=== PATIENT | male | born 1960 | race Caucasian/White ===

== ENCOUNTER 2020-05-26 07:02 | Day surgery (SDC) | payer OTHER, SELFPAY ==
[2020-05-20 14:13] VITALS: BMI 26.0
--- NOTE | 2020-05-25 09:32 | HO.ANESPROP2 ---
Documented by User: Mora Singh 05/25/20 12:12 HPI - Anesthesia Eval Consult details Narrative: 59yo M for Colonoscopy s/p AAA repair 2009, stable per recent pcp note. No imaging available 05/25/20. [facility] Past Medical History Medical History History of CVA (cerebrovascular accident) without residual deficits HTN (hypertension) Surgical History Surgical History Hx of ascending aorta repair Hx of colonoscopy Social History Social History Smoking Status: Never smoker Use of substances other than those prescribed or required for medical reasons: No Advance Directives: No Advance Directives Information Provided: No Advance Directives on File: No Meds Allergies Allergy/AdvReac Type Severity Reaction Status Date / Time No Known Allergies Allergy Mild NOT Verified 05/26/20 07:18 APPLICABLE Home Medications Medication Instructions Recorded Confirmed Type aspirin [Aspir-81] 81 mg PO DAILY 05/20/20 05/20/20 History ibuprofen 400 mg PO Q6H PRN 05/20/20 05/20/20 History lisinopril 20 mg PO DAILY 05/20/20 05/20/20 History metoprolol succinate 50 mg PO DAILY 05/20/20 05/26/20 History multivitamin 1 tab PO DAILY 05/20/20 05/20/20 History Exam Exam Date and Time: May 25, 2020 0932 Height,Weight and Vital Signs: Height 6 ft Weight 87.09 kg Assessment and Plan Assessment Anesthesia Assessment: Chart Reviewed Documented by User: Amber Zaldivar 05/26/20 07:28 [facility] Past Medical History Medical History History of CVA (cerebrovascular accident) without residual deficits HTN (hypertension) Surgical History Surgical History Hx of ascending aorta repair Hx of colonoscopy Social History Social History Smoking Status: Never smoker Use of substances other than those prescribed or required for medical reasons: No Advance Directives: No Advance Directives Information Provided: No Advance Directives on File: No Meds Allergies Allergy/AdvReac Type Severity Reaction Status Date / Time No Known Allergies Allergy Mild NOT Verified 05/26/20 07:18 APPLICABLE Home Medications Medication Instructions Recorded Confirmed Type aspirin [Aspir-81] 81 mg PO DAILY 05/20/20 05/20/20 History ibuprofen 400 mg PO Q6H PRN 05/20/20 05/20/20 History lisinopril 20 mg PO DAILY 05/20/20 05/20/20 History metoprolol succinate 50 mg PO DAILY 05/20/20 05/26/20 History multivitamin 1 tab PO DAILY 05/20/20 05/20/20 History Exam Airway Mallampati Class: II TM Dist: >3cm Neck ROM: Full
[2020-05-26 07:22] VITALS: BP 126/78; PULSE 75; RESP 16; TEMP 36.8; O2SAT 97
[2020-05-26] MEDS: Lactated Ringers 1,000 ML 100 ML IVCONT (07:29)
--- NOTE | 2020-05-26 08:20 | MHC.SHP ---
Pre-Procedural Eval Section B Chief Complaint: Screening Details of Present Illness: screening Relevant Family History (Specify if Yes): No Relevant Social History: None Present Medications: see Short Stay Collaborative assessment Medical History: No relevant PMH History of Previous Operations: No relevant previous surgery Allergies: Allergies Allergy/AdvReac Type Severity Reaction Status Date / Time No Known Allergies Allergy Mild NOT Verified 05/26/20 07:18 APPLICABLE Review of Systems Sugical H&P ROS: Negative: Constitution, Cardiovascular, Respiratory, Neurological, Psychiatric, Hem-Onc, Allergic/Immunologic, Gastrointestinal, Genitourinary, Musculoskeletal, Integumentary, Endocrine and Eyes/Ears/Nose/Throat Exam Surgical H&P Exam: Normal: HEENT, Normal: Heart, Normal: Lungs, Normal: Extremities, Normal: Abdomen, Normal: Skin and Normal: Neurological Plan Diagnosis/Plan: Unchanged I have reviewed the history and physical and performed a pertinent physical examination on my patient. No changes have occurred unless specified.
--- NOTE | 2020-05-26 08:53 | PM.OP ---
Brief Operative Note Date of Service: 05/26/20 Pre-op diagnosis: screening Post-op diagnosis: same (normal) Procedure: colonoscopy Surgeon: Memo Gutierres Anesthesia: MAC Estimated blood loss (mL): 0 Pathology: none sent Condition: stable Disposition: PACU
[2020-05-26 08:55] VITALS: BP 100/60; PULSE 62; RESP 16; TEMP 36.9; O2SAT 99
[2020-05-26 09:10] VITALS: BP 137/83; PULSE 65; RESP 17; TEMP 36.2; O2SAT 99
--- NOTE | 2020-05-26 09:18 | OP_ITS ---
SURGEON: Memo Gutierres MD INDICATIONS: Colon cancer screening. PREOPERATIVE DIAGNOSIS: POSTOPERATIVE DIAGNOSIS: PROCEDURE PERFORMED: Colonoscopy to the terminal ileum. ESTIMATED BLOOD LOSS: COMPLICATIONS: ANESTHESIA: ASSISTANTS: SPECIMENS: MEDICATIONS: Monitored anesthesia care. DESCRIPTION OF PROCEDURE: History and physical performed. The risks and benefits of the procedure were explained to the patient. Informed consent was obtained. The patient was placed in the left lateral decubitus position. A digital rectal exam was performed and was found to be normal. The Olympus pediatric video colonoscope was introduced into the rectum and advanced to the cecum without difficulty. The cecum was identified by transillumination, palpation, and identification of ileocecal valve. Examination was performed and the scope was removed. He tolerated the procedure well and was taken to recovery area in stable condition. FINDINGS: The terminal ileum was examined and appeared normal. The visualized colonic mucosa was normal. The quality of prep was good. No polyps were identified. Retroflexed examination was normal. IMPRESSION: Normal colonoscopy. RECOMMENDATIONS: 1. Follow up as needed. 2. Repeat colonoscopy is recommended in 10 years for average risk individuals. MD UMESH Silveira/CROW / [id number]
--- NOTE | 2020-05-26 09:18 | HO.POSTANES ---
Post Anesthesia Evaluation Post Anesthesia Evaluation Vital Signs: Vital Signs Temp Pulse Resp BP Pulse Ox 05/26/20 09:10 97.1 F 65 17 137/83 99 05/26/20 08:55 98.4 F 62 16 100/60 99 05/26/20 07:22 98.3 F 75 16 126/78 97 Anesthesia: Monitored Mental Status: Awake Pain Control: Satisfactory Nausea/Vomiting: None Hydration: Adequate Anesthesia-Related Issues: No Anes. Related Issues
== END 2020-05-26 09:35 | disposition home or self-care (01) ==
PROVIDERS: PCP Internal Medicine; Visit Provider Internal Medicine Gastroenterology
PROC: 0DJD8ZZ Inspection of Lower Intestinal Tract, Via Natural or Artificial Opening Endoscopic (ICD-10-PCS; CPT 45378; principal; 2020-05-26 08:10)
DX: Z12.11 Encounter for screening for malignant neoplasm of colon (principal); I10 Essential (primary) hypertension; Z86.73 Personal history of transient ischemic attack (TIA), and cerebral infarction without residual deficits; Z79.82 Long term (current) use of aspirin; Z79.899 Other long term (current) drug therapy
CPT/HCPCS: 45378

== ENCOUNTER 2025-01-03 08:37 | Outpatient (REF) | payer MEDICARE, SELFPAY ==
--- OUTSIDE RECORDS SUMMARY | 2025-01-03 08:51 | XMS_ITS | Encounter Summary ---
Author Organization [facility] Address [address] [place] [address] Phone Care Team Providers Care Parts Technician Name Role Phone Luther Camara MD Primary Care Provider [phone] Marcellus Mojica MD Unavailable [phone] Wild Rutledge MD Unavailable [email or web address] Luther Camara MD Unavailable [phone] Roddy Chris MD Unavailable [phone] Luther Camara MD Unavailable [phone] Encounter Details Date Type Department Care Team (Late st Contact Info) Description 01/13/2020 Transcribe Orders [facility] [address] [place] [id number] Luther Camara MD [address] [place] [address] [email or web address] Social History Tobacco Use Types Packs/Day Years Used Date Smoking Tobacco: Never Smokeless Tobacco: Never Alcohol Use Standard Drinks/Week Comments Yes 7 (1 standard drink = 0.6 oz pur e alcohol) Sex and Gender Information Value Date Recorded Sex Assigned at Male 12/27/2023 1:26 PM EDT Legal Sex Male 7:36 PM EST Gender Identity Male 12/27/2023 1:26 PM EDT Sexual Orientation Straight 12/27/2023 1: 26 PM EDT documented as of this encounter Plan of Treatment Upcoming Encounters Date Type Department Care Team (Late st Contact Info) Description 10/17/2025 9:00 AM EDT Office Visit [facility] Internal Medicine [address] [place] [address] Luther Camara MD [address] [place] [address] documented as of this encounter Visit Diagnoses Not on filedocumented in this encounter Additional Health Concerns Assessment Noted Time PHQ-9 Depression Total Score: 0 01/21/20 10:54 AM EDT PHQ-2 Depression Total Score: 0 12/31/19 2:53 PM EDT documented as of this encounter Care Teams Parts Technician Relationship Specialty Start Date End Date Luther Camara MD [address] [place] [address] PCP - General 09/18/14 Marcellus Mojica MD [address] [place] [address] Cardiology 01/20/15 Wild Rutledge MD [email or web address] Cardiology 08/16/16 Luther Camara MD [address] [place] [address] Historical LMR Provider 03/04/17 Roddy Chris MD [address] [place] [address] [place] [address] Middleware Architect Internal Medicine 07/21/20 Luther Camara MD [address] [place] [address] [email or web address] Insurance Assigned Provider 02/18/24 documented as of this encounter Additional Source Comments The information contained in this document represents components of the legal health record. It is not the complete legal health record.[facility]
--- OUTSIDE RECORDS SUMMARY | 2025-01-03 08:51 | XMS_ITS | Patient Health Record ---
Author Organization [facility] Address [address] [place] [id number] Care Team Providers Care Pin Drafter Operator Name Role Phone Luther Camara MD Primary Care Provider Memo Baer Jr Unavailable Reason For Referral No Information Medications Medication SIG (Take, Route, Frequency, Duration) Notes Start Date End Date Status MiraLax (colon prep) 8.3 ounce ((238) grams mixed with Gatorade or Crystal Light orally begin at 5:00 p.m. the day before the procedure for 1 day 03/25/2020 Active Metoprolol Succinate 50 MG 1 capsule Ora lly Once a day for 30 day(s) Active Aspirin 81 81 MG 1 tablet Orally Once a day for 30 day(s) Active Lisinopril 20 MG 1 tablet Orally Once a day for 30 day(s) Active Ibuprofen PRN Active Multivitamin Adults - as directed Orally Active Immunizations Vaccine Route Administration Date Status Comme nts Influenza Unknown 01/22/2020 Administered Social History Tobacco Use: Social History Observation Description Date Details (start date - stop date) Never Smoker NA - NA Tobacco Use/Smoking Question Answer Notes Patient is a nonsmoker Alcohol Screen Question Answer Notes Did you have a drink contain ing alcohol in the past year? Yes How often did you have a dri nk containing alcohol in the past year? 2 to 3 times a week (3 points) How many drinks did you have on a typical day when you were drinking in the past year? 1 or 2 drinks (0 point) How often did you have 6 or more drinks on one occasion in the past year? Never (0 point) Points 3 Interpretation Negative Problems Problem Type SNOMED Code ICD Code Onset Dates Problem Status W/U Status Risk Notes Problem 179849566 Colon cancer screening (Z12.11) Active confirmed Problem 885435868 Encounter for other preprocedural examination (Z01.818) Active confirmed Problem [id number] prison (current) use of aspirin (Z79.82) Active confirmed Plan Of Treatment Future Test Test Name Order Date COLONOSCOPY 03/25/2020 Insurance Providers Payer Name Payer Address Payer Phone Subscriber Number Group Number Insured Name Patient Relationship to Insured Coverage Start Date Coverage End Date [facility] [address] [place] [phone] [id number] D[employer] Self - patient is the insured Medical (General) History Medical History History ICD Code hypertension Aortic aneurysm CVA/PFO Surgical History Surgery Date(Month/Year) Aortic aneurysm repair hernia repair x2 PFO repair at time of aneurysm repair
== END 2025-01-03 08:38 | disposition home or self-care (01) ==
LOC: CF 08:37
DX: Z13.89 Encounter for screening for other disorder (principal)

== ENCOUNTER 2025-01-15 09:43 | Outpatient (AMB) | payer MEDICARE, SELFPAY ==
--- OUTSIDE RECORDS SUMMARY | 2025-01-15 10:43 | XMS_ITS | Encounter Summary ---
Author Organization [facility] Address [address] [facility] [address] [place] [address] Phone Care Team Providers Care Product Coordinator Name Role Phone Luther Camara MD Primary Care Provider [phone] Marcellus Mojica MD Unavailable [phone] Wild Rutledge MD Unavailable [email or web address] Luther Camara MD Unavailable Roddy Chris MD Unavailable [phone] Luther Camara MD Unavailable [phone] Encounter Details Date Type Department Care Team (Late st Contact Info) Description 02/03/2022 Procedure Pass [facility] Echocardiography [address] [place] [address] Social History Tobacco Use Types Packs/Day Years Used Date Smoking Tobacco: Never Smokeless Tobacco: Never Alcohol Use Standard Drinks/Week Comments Yes 2 (1 standard drink = 0.6 oz pur e alcohol) 1-2 drinks, 2-3 x week Child or Family Care Answer Date Record ed Do you have problems with on e of the following making it difficult for you to work, study, or receive health care? No 11/26/2020 Education Answer Date Recorded Are you interested in help w ith more adult education (for example, completing high school, GED, job training, learning the [place] language, technical skills, or developing parenting skills)? No 11/26/2020 Are you concerned about learning? Not on file 11/26/2020 Not on file 11/26/2020 Not on file 11/26/2020 Food Answer Date Recorded Within the past 6 months we worried whether our food would run out before we got money to buy more. Never True 11/26/2020 Within the past 6 months the food we bought just didn't last and we didn't have enough money to get more. Never True Paying for Meds Answer Date Recorded Do you have trouble paying for medicines? No 11/26/2020 Paying Utility Bills Answer Date Record ed Do you have trouble paying your heating or elect ricity bill? No 11/26/2020 Transportation Answer Date Recorded Has the lack of transportati on kept you from medical appointments or from getting medications? No 11/26/2020 Sex and Gender Information Value Date Recorded Sex Assigned at Male 12/27/2023 1:26 PM EDT Legal Sex Male 7:36 PM EST Gender Identity Male 12/27/2023 1:26 PM EDT Sexual Orientation Straight 12/27/2023 1: 26 PM EDT documented as of this encounter Plan of Treatment Upcoming Encounters Date Type Department Care Team (Late st Contact Info) Description 10/17/2025 9:00 AM EDT Office Visit [facility] Internal Medicine [address] [place] [address] Luther Camara MD [address] [place] [address] [email or web address] documented as of this encounter Visit Diagnoses Not on filedocumented in this encounter Additional Health Concerns Assessment Noted Time PHQ-9 Depression Total Score: 0 01/21/20 15 10:54 AM EDT PHQ-2 Depression Total Score: 0 06/14/19 23 3:38 PM EST documented as of this encounter Care Teams Product Coordinator Relationship Specialty Start Date End Date Luther Camara MD [address] [place] [address] PCP - General 09/18/14 Marcellus Mojica MD [address] [place] [address] Cardiology 01/20/15 Wild Rutledge MD [email or web address] Cardiology 08/16/16 Luther Camara MD [address] [place] [address] [email or web address] Historical LMR Provider 03/04/17 Roddy Chris MD [address] [place] [address] [place] [address] Acoustical Engineer Internal Medicine 07/21/20 Luther Camara MD [address] [place] [address] [email or web address] Insurance Assigned Provider 02/18/24 documented as of this encounter Additional Source Comments The information contained in this document represents components of the legal health record. It is not the complete legal health record.[facility]
--- OUTSIDE RECORDS SUMMARY | 2025-01-15 10:43 | XMS_ITS | Encounter Summary ---
Author Organization [facility] Address [address] [facility] [address] [place] [address] Phone Care Team Providers Care Information Systems Security Officer Name Role Phone Luther Camara MD Primary Care Provider [phone] Marcellus Mojica MD Unavailable [phone] Wild Rutledge MD Unavailable [email or web address] Luther Camara MD Unavailable [phone] PeriRoddy Ramos MD Unavailable [phone] Luther Camara MD Unavailable [phone] Encounter Details Date Type Department Care Team (Late st Contact Info) Description 08/08/[address] [facility] Rad[facility] [address] [place] [address] Social History Tobacco Use Types Packs/Day Years Used Date Smoking Tobacco: Never Alcohol Use Standard Drinks/Week Comments Not Asked 0 (1 standard drink = 0.6 oz pur [...] Description 10/17/2025 9:00 AM EDT Office Visit [facility] Internal Medicine [address] [place] [address] Luther Camara MD [address] [place], [place] [phone] documented as of this encounter Visit Diagnoses Not on filedocumented in this encounter Additional Health Concerns Assessment Noted Time PHQ-9 Depression Total Score: 0 01/21/20 10:54 AM EDT PHQ-2 Depression Total Score: 0 01/21/20 10:54 AM EDT documented as of this encounter Care Teams Information Systems Security Officer Relationship Specialty Start Date End Date Luther Camara MD [address] [place] [address] PCP - General 09/18/14 Marcellus Mojica MD [address] [place] [address] Cardiology 01/20/15 Wild Rutledge MD [email or web address] Cardiology 08/16/16 Luther Camara MD [address] [place] [address] Historical LMR Provider 03/04/17 Roddy Chris MD [address] [place] [address] [place] [address] Fire Hydrant Mechanic Internal Medicine 07/21/20 Luther Camara MD [address] [place] [address] Insurance Assigned Provider 02/18/24 documented as of this encounter Additional Source Comments The information contained in this document represents components of the legal health record. It is not the complete legal health record.[facility]
--- OUTSIDE RECORDS SUMMARY | 2025-01-15 10:43 | XMS_ITS | Encounter Summary ---
Author Organization [facility] Address [address] [facility] [address] [place] [address] Phone Care Team Providers Care Lawn And Garden Technician Name Role Phone Luther Camara MD Primary Care Provider [phone] Marcellus Mojica MD Unavailable [phone] Wild Rutledge MD Unavailable [email or web address] Luther Camara MD Unavailable [phone] Roddy Chris MD Unavailable [phone] Luther Camara MD Unavailable [phone] Encounter Details Date Type Department Care Team (Late st Contact Info) Description 12/27/[address] [facility] Radiology [address] [place] [address] Social History Tobacco Use Types Packs/Day Years [...] work, study, or receive health care? No 06/15/2023 Education Answer Date Recorded Are you interested in help w ith more adult education (for example, completing high school, GED, job training, learning the [place] language, technical skills, or developing parenting skills)? No 06/15/2023 Are you concerned about learning? Not on file 06/15/2023 No 06/15/2023 Yes 06/15/2023 Food Answer Date Recorded Within the past 6 months we worried whether our food would run out before we got money to buy more. Never True 06/15/2023 Within the past 6 months the food we bought just didn't last and we didn't have enough money to get more. Never True Residential Stability Answer Date Recor ded What is your housing situation today? I have dimitri sinclair 06/15/2023 How many times have you move d in the past 12 months? Zero (I did not move) 06/15/2023 Paying for Meds Answer Date Recorded Do you have trouble paying for medicines? No 06/15/2023 Paying Utility Bills Answer Date Record ed Do you have trouble paying your heating or elect ricity bill? No 06/15/2023 Transportation Answer Date Recorded Has the lack of transportati on kept you from medical appointments or from getting medications? No 06/15/2023 Unemployment Answer Date Recorded Are you currently unemployed or working on a part-time or temporary basis, and looking for work? No 06/14/2022 Digital Access Answer Date Recorded No 06/15/2023 Yes 06/15/2023 Do you have reliable internet access at home? Ye s 06/15/2023 Do you have a device (e.g., phone, tablet, computer) with a working camera? Yes 06/15/2023 Intimate Partner Violence Answer Date R ecorded Denied Basic Needs Not on file 06/15/2023 In the past 12 months have y ou been in a relationship with a person who hurts, threatens, or tries to control you? No 06/15/2023 Worried food would run out Not on file 06/15 In the past 12 months have y ou been in a relationship with a person who hurts, threatens, or tries to control you? No 06/15/2023 Sex and Gender Information Value Date Recorded Sex Assigned at Male 12/27/2023 1:26 PM EDT Legal Sex Male 7:36 PM EST Gender Identity Male 12/27/2023 1:26 PM EDT Sexual Orientation Straight 12/27/2023 1: 26 PM EDT documented as of this encounter Plan of Treatment Upcoming Encounters Date Type Department Care Team (Late st Contact Info) Description 10/17/2025 9:00 AM EDT Office Visit [facility] Internal Medicine [address] [place], [place] [id number] Luther Camara MD [address] [place] [address] documented as of this encounter Visit Diagnoses Not on filedocumented in this encounter Additional Health Concerns Assessment Noted Time PHQ-9 Depression Total Score: 0 01/21/20 15 10:54 AM EDT PHQ-2 Depression Total Score: 0 06/15/19 24 4:11 PM EST documented as of this encounter Care Teams Lawn And Garden Technician Relationship Specialty Start Date End Date Luther Camara MD [address] [place] [address] PCP - General 09/18/14 Marcellus Mojica MD [address] [place] [address] Cardiology 01/20/15 Wild Rutledge MD [email or web address] Cardiology 08/16/16 Luther Camara MD [address] [place] [address] Historical LMR Provider 03/04/17 Roddy Chris MD [address] [place] [address] [place] [address] Record Tester Internal Medicine 07/21/20 Luther Camara MD [address] [place] [address] [email or web address] Insurance Assigned Provider 02/18/24 documented as of this encounter Additional Source Comments The information contained in this document represents components of the legal health record. It is not the complete legal health record.[facility]
--- OUTSIDE RECORDS SUMMARY | 2025-01-15 10:43 | XMS_ITS | Encounter Summary ---
Author Organization [facility] Address [address] [facility] [address] [place] [address] Phone Care Team Providers Care Partner Management Consultant Name Role Phone Luther Camara MD Primary Care Provider [phone] Marcellus Mojica MD Unavailable [phone] Wild Rutledge MD Unavailable [email or web address] Luther Camara MD Unavailable [phone] Roddy Chris MD Unavailable [phone] Luther Camara MD Unavailable [phone] Encounter Details Date Type Department Care Team (Late st Contact Info) Description 07/22/2024 Procedure Pass [facility] Radiology [address] [place] [address] Social History Tobacco Use Types Packs/Day Years [...] high school, GED, job training, learning the Stateless language, technical skills, or developing parenting skills)? [...] Description 10/17/2025 9:00 AM EDT Office Visit [facility] Internal Medicine [address] [place], [place] [phone] Luther Camara MD [address] [place] [address] documented as of this encounter Visit Diagnoses Not on filedocumented in this encounter Additional Health Concerns Assessment Noted Time PHQ-9 Depression Total Score: 0 01/21/20 15 10:54 AM EDT PHQ-2 Depression Total Score: 0 06/15/19 24 4:11 PM EST documented as of this encounter Care Teams Partner Management Consultant Relationship Specialty Start Date End Date Luther Camara MD [address] [place] [address] PCP - General 09/18/14 Marcellus Mojica MD [address] [place] [address] Cardiology 01/20/15 Wild Rutledge MD [email or web address] Cardiology 08/16/16 Luther Camara MD [address] [place] [address] Historical LMR Provider 03/04/17 Roddy Chris MD [address] [place] [address] [place] [address] Senior Field Engineer Internal Medicine 07/21/20 Luther Camara MD [address] [place] [address] [email or web address] Insurance Assigned Provider 02/18/24 documented as of this encounter Additional Source Comments The information contained in this document represents components of the legal health record. It is not the complete legal health record.[facility]
--- OUTSIDE RECORDS SUMMARY | 2025-01-15 10:43 | XMS_ITS | Encounter Summary ---
Author Organization [facility] Address [address] [place] [address] Phone Care Team Providers Care Bulk Plant Agent Name Role Phone Luther Camara MD Primary Care Provider [phone] Marcellus Mojica MD Unavailable [phone] Wild Rutledge MD Unavailable [email or web address] Luther Camara MD Unavailable [phone] PeriRoddy Ramos MD Unavailable [phone] Luther Camara MD Unavailable Reason for Referral * MRI/CAT Scan - Closed Specialty Diagnoses / Procedures Referred By Paul torres Referred To Contact Radiology Diagnoses Status post ascending aortic aneurysm repair Procedures CT Angio 3D Reconstruction Chest/Abdomen/Pelvis Josh Rg PA-C [address] [place] [address] Phone: tel: fax: mailto:[email or web address] Referral ID Status Reason Start Date Expiration Date Visits Re quested Visits Authorized [id number] Closed 07/22/2024 08/12/2024 1 1 Encounter Details Date Type Department Care Team ([facility] st Contact Info) Description 07/22/2024 Ancillary Orders [facility] Cardiac Surgery [address] [place] [address] Josh Rg PA-C [address] [place] [address] [email or web address] Status post ascending aortic aneurysm repair (Primary Dx) Social History Tobacco Use Types Packs/Day Years [...] high school, GED, job training, learning the Bahamian language, technical skills, or developing parenting skills)? [...] your housing situation today? I have dimitri sing 06/15/2023 How many times have you move [...] Description 10/17/2025 9:00 AM EDT Office Visit [facility] Internal Medicine [address] [place] [address] Luther Camara MD [address] [place] [address] [email or web address] documented as of this encounter Results * CT Angio 3D Reconstruction Chest/Abdomen/Pelvis (07/22/2024 2:29 PM EDT) Anatomical Region Laterality Modality Abdomen, Pelvis, Chest Computed Tomography 07/22/2024 3:14 PM EDT Impressions 07/23/2024 11:28 AM EDT * Post-surgical changes in the aortic root and ascending aorta with no complications. * Unchanged mild dilatation of the distal ascending aorta. ATTESTATION: Percy Larson, as teaching physician have reviewed the images, if any, for this patient's exam, and if necessary, have edited the report originally created by Marisa Deshpande. Narrative 07/23/2024 11:[address] ANGIO CHEST WITH AND WITHOUT CONTRAST, CT ANGIO 3D RECONSTRUCTION CHEST/ABDOMEN/PELVIS, CT ANGIO ABDOMEN/PELVIS WITH CONTRAST Additional clinical information obtained from the EHR: Status post aortic aneurysm repair in 2007. TECHNIQUE: Multidector-row CTA of the chest, abdomen and pelvis was performed with and without intravenous contrast using tailored dose modulation techniques. Images were reconstructed in the axial, coronal, and sagittal planes, including angiographic image post-processing. COMPARISON: MRI ANGIO CHEST WITH AND WITHOUT CONTRAST FINDINGS: VASCULAR: Aorta: Status post valve sparing aortic root, ascending aorta and hemiarch replacement for aortic root and ascending aortic aneurysm. No pseudoaneurysm formation. Unchanged mild dilatation of the prevascular/distal ascending aorta as measured below. Coronary arteries: Mild calcification. Coronary artery reimplantation. Brachiocephalic trunk: No stenosis, dissection or occlusion. Right subclavian artery: No stenosis, dissection or occlusion. Proximal segment of the left common carotid artery: No stenosis, dissection or occlusion. Left subclavian artery: No stenosis, dissection or occlusion. Celiac axis: No stenosis, dissection or occlusion. Superior mesenteric artery: No stenosis, dissection or occlusion. Replaced right hepatic artery arising from the SMA. Right renal artery: No stenosis, dissection or occlusion. Left renal artery: No stenosis, dissection or occlusion. Inferior mesenteric artery: No aneurysm, stenosis, dissection or occlusion. Right common iliac: Mild stenosis. Right external iliac: Mild stenosis. Left common iliac: Mild stenosis. Left external iliac: No stenosis, dissection or occlusion. Measurements are as follows (largest diameter short-axis to the centerline): Ascending aorta (distal): 4.1 x 4.0 cm, unchanged. NONVASCULAR: Devices/Tubes/Lines: None. Lungs: The airways are clear. No suspicious pulmonary nodules or consolidation. Pleura: No pleural effusion or pneumothorax. Mediastinum: No suspicious thyroid nodules. Pericardium normal. Chest Wall: Median sternotomy wires. No chest wall mass. Liver: No focal lesions. Biliary: No biliary ductal dilatation. Spleen: No splenomegaly. Pancreas: No ductal dilatation, peripancreatic fluid, or stranding. Adrenal Glands: No nodules. Kidneys/Ureters: No stones or hydronephrosis. Bowel: Small hiatal hernia. Colonic diverticulosis. No distention or wall thickening. Peritoneum/Retroperitoneum: No masses, pneumoperitoneum, or fluid. Lymph Nodes: No lymphadenopathy. Pelvic Organs/Bladder: Post-surgical changes in the anterior wall. No mass. Bones: Mild degenerative change of the spine. No suspicious lytic or blastic lesions. Procedure Note Percy Aldana MD - 07/23/2024 CT ANGIO CHEST WITH AND WITHOUT CONTRAST, CT ANGIO 3D RECONSTRUCTIONCHEST/ABDOMEN/PELVIS, CT ANGIO ABDOMEN/PELVIS WITH CONTRAST Additional clinical information obtained from the EHR: Status post aorticaneurysm repair in 2007. TECHNIQUE: Multidector-row CTA of the chest, abdomen and pelvis wasperformed with and without intravenous contrast using tailored dosemodulation techniques. Images were reconstructed in the axial, coronal,and sagittal planes, including angiographic image post-processing. COMPARISON: MRI ANGIO CHEST WITH AND WITHOUT CONTRAST FINDINGS: VASCULAR: Aorta: Status post valve sparing aortic root, ascending aorta and hemiarchreplacement for aortic root and ascending aortic aneurysm. Nopseudoaneurysm formation. Unchanged mild dilatation of theprevascular/distal ascending aorta as measured below. Coronary arteries: Mild calcification. Coronary artery reimplantation. Brachiocephalic trunk: No stenosis, dissection or occlusion. Right subclavian artery: No stenosis, dissection or occlusion. Proximal segment of the left common carotid artery: No stenosis,dissection or occlusion. Left subclavian artery: No stenosis, dissection or occlusion. Celiac axis: No stenosis, dissection or occlusion. Superior mesenteric artery: No stenosis, dissection or occlusion. Replacedright hepatic artery arising from the SMA. Right renal artery: No stenosis, dissection or occlusion. Left renal artery: No stenosis, dissection or occlusion. Inferior mesenteric artery: No aneurysm, stenosis, dissection orocclusion. Right common iliac: Mild stenosis. Right external iliac: Mild stenosis. Left common iliac: Mild stenosis. Left external iliac: No stenosis, dissection or occlusion. Measurements are as follows (largest diameter short-axis to thecenterline): Ascending aorta (distal): 4.1 x 4.0 cm, unchanged. NONVASCULAR: Devices/Tubes/Lines: None. Lungs: The airways are clear. No suspicious pulmonary nodules orconsolidation. Pleura: No pleural effusion or pneumothorax. Mediastinum: No suspicious thyroid nodules. Pericardium normal. Chest Wall: Median sternotomy wires. No chest wall mass. Liver: No focal lesions. Biliary: No biliary ductal dilatation. Spleen: No splenomegaly. Pancreas: No ductal dilatation, peripancreatic fluid, or stranding. Adrenal Glands: No nodules. Kidneys/Ureters: No stones or hydronephrosis. Bowel: Small hiatal hernia. Colonic diverticulosis. No distention or wallthickening. Peritoneum/Retroperitoneum: No masses, pneumoperitoneum, or fluid. Lymph Nodes: No lymphadenopathy. Pelvic Organs/Bladder: Post-surgical changes in the anterior wall. [place]. Bones: Mild degenerative change of the spine. No suspicious lytic orblastic lesions. IMPRESSION: * Post-surgical changes in the aortic root and ascending aorta with nocomplications. * Unchanged mild dilatation of the distal ascending aorta. ATTESTATION: Percy Larson, as teaching physician have reviewed theimages, if any, for this patient's exam, and if necessary, have edited thereport originally created by Marisa Deshpande. Josh Rg PA-C IMDixie CT Final Result documented in this encounter Visit Diagnoses Diagnosis Status post ascending aortic aneurysm repair Status post ascending aortic aneurysm repair- Primary documented in this encounter Additional Health Concerns Assessment Noted Time PHQ-9 Depression Total Score: 0 01/21/20 15 10:54 AM EDT PHQ-2 Depression Total Score: 0 06/15/19 24 4:11 PM EST documented as of this encounter Care Teams Bulk Plant Agent Relationship Specialty Start Date End Date Luther Camara MD [address] [place] [address] PCP - General 09/18/14 Marcellus Mojica MD [address] [place] [address] Cardiology 01/20/15 Wild Rutledge MD [email or web address] Cardiology 08/16/16 Luther Camara MD [address] [place] [address] [email or web address] Historical LMR Provider 03/04/17 Roddy Chris MD [address] [place] [address] [place] [address] Psychological Tests Sales Agent Internal Medicine 07/21/20 Luther Camara MD [address] [place] [address] [email or web address] Insurance Assigned Provider 02/18/24 documented as of this encounter Additional Source Comments The information contained in this document represents components of the legal health record. It is not the complete legal health record.[facility]
--- OUTSIDE RECORDS SUMMARY | 2025-01-15 10:43 | XMS_ITS | Encounter Summary ---
Author Organization [facility] Address [address] [place] [address] Phone Care Team Providers Care Export Freight Specialist Name Role Phone Luther Camara MD Primary Care Provider [phone] Marcellus Mojica MD Unavailable [phone] Wild Rutledge MD Unavailable [email or web address] Luther Camara MD Unavailable [phone] Roddy Chris MD Unavailable [phone] Luther Camara MD Unavailable [phone] Encounter Details Date Type Department Care Team (Late st Contact Info) Description 05/13/2020 Procedure Pass [facility] Echocardiography [address] [place] [address] Social History Tobacco Use Types Packs/Day Years [...] Description 10/17/2025 9:00 AM EDT Office Visit [facility] Internal Medicine [address] [place] [address] Luther Camara MD [address] [place], [place] [address] [email or web address] documented as of this encounter Visit Diagnoses Not on filedocumented in this encounter Additional Health Concerns Assessment Noted Time PHQ-9 Depression Total Score: 0 01/21/20 15 10:54 AM EDT PHQ-2 Depression Total Score: 0 07/22/19 21 10:14 AM EST documented as of this encounter Care Teams Export Freight Specialist Relationship Specialty Start Date End Date Luther Camara MD [address] [place] [address] [email or web address] PCP - General 09/18/14 Marcellus Mojica MD [address] [place] [address] Cardiology 01/20/15 Wild Rutledge MD [email or web address] Cardiology 08/16/16 Luther Camara MD [address] [place] [address] [email or web address] Historical LMR Provider 03/04/17 Roddy Chris MD [address] [place] [address] [place] [address] Wrecking Mechanic Internal Medicine 07/21/20 Luther Camara MD [address] [place] [address] [email or web address] Insurance Assigned Provider 02/18/24 documented as of this encounter Additional Source Comments The information contained in this document represents components of the legal health record. It is not the complete legal health record.[facility]
--- OUTSIDE RECORDS SUMMARY | 2025-01-15 10:43 | XMS_ITS | Encounter Summary ---
Author Organization [facility] Address [address] [place] [address] Phone Care Team Providers Care Paint Mixer Hand Name Role Phone Luther Camara MD Primary Care Provider [phone] Marcellus Mojica MD Unavailable [phone] Wild Rutledge MD Unavailable [email or web address] Luther Camara MD Unavailable [phone] Roddy Chris MD Unavailable [phone] Luther Camara MD Unavailable [phone] Encounter Details Date Type Department Care Team (Late st Contact Info) Description 01/13/2020 Transcribe Orders [facility] [address] [place] [address] [id number] Luther Camara MD [address] [place] [address] [email or web address] Social History Tobacco Use Types Packs/Day Years [...] Description 10/17/2025 9:00 AM EDT Office Visit [facility] Internal Medicine [address] [place] [address] Luther Camara MD [address] [place] [address] documented as of this encounter Visit Diagnoses Not on filedocumented in this encounter Additional Health Concerns Assessment Noted Time PHQ-9 Depression Total Score: 0 01/21/20 10:54 AM EDT PHQ-2 Depression Total Score: 0 12/31/19 2:53 PM EDT documented as of this encounter Care Teams Paint Mixer Hand Relationship Specialty Start Date End Date Luther Camara MD [address] [place] [address] PCP - General 09/18/14 Marcellus Mojica MD [address] [place] [address] Cardiology 01/20/15 Wild Rutledge MD [email or web address] Cardiology 08/16/16 Luther Camara MD [address] [place] [address] Historical LMR Provider 03/04/17 Roddy Chris MD [address] [place] [address] [place] [address] Sugar Plantation Manager Internal Medicine 07/21/20 Luther Camara MD [address] [place] [address] [email or web address] Insurance Assigned Provider 02/18/24 documented as of this encounter Additional Source Comments The information contained in this document represents components of the legal health record. It is not the complete legal health record.[facility]
--- OUTSIDE RECORDS SUMMARY | 2025-01-15 10:43 | XMS_ITS | Patient Health Record ---
Author Organization [facility] Address [address] [place] [phone] Care Team Providers Care Radiology Receptionist Name Role Phone Luther Camara MD Primary [...] Problem Status W/U Status Risk Notes Problem [id number] Colon cancer screening (Z12.11) Active confirmed Problem [id number] Encounter for other preprocedural examination (Z01.818) Active confirmed Problem [id number] [facility] (current) use of aspirin (Z79.82) Active confirmed Plan Of Treatment Future Test Test Name Order Date COLONOSCOPY 03/25/2020 Insurance Providers Payer Name Payer Address Payer Phone Subscriber Number Group Number Insured Name Patient Relationship to Insured Coverage Start Date Coverage End Date [facility] [address] [place] [phone] [id number] [employer] Self - patient is the insured Medical (General) History Medical History History ICD Code hypertension Aortic aneurysm CVA/PFO Surgical History Surgery Date(Month/Year) Aortic aneurysm repair hernia repair x2 PFO repair at time of aneurysm repair
--- OUTSIDE RECORDS SUMMARY | 2025-01-15 10:43 | XMS_ITS | Encounter Summary ---
Author Organization [facility] Address [address] [facility] [address] [place] [address] Phone Care Team Providers Care Senior Ruby Developer Name Role Phone Luther Camara MD Primary Care Provider [phone] Marcellus Mojica MD Unavailable [phone] Wild Rutledge MD Unavailable [email or web address] Luther Camara MD Unavailable [phone] Roddy Chris MD Unavailable [phone] Luther Camara MD Unavailable [phone] Encounter Details Date Type Department Care Team (Late st Contact Info) Description 05/21/2024 Procedure Pass [facility] Echocardiography [address] [place] [address] Social History Tobacco Use Types Packs/Day Years [...] high school, GED, job training, learning the Barbadian language, technical skills, or developing parenting skills)? [...] Description 10/17/2025 9:00 AM EDT Office Visit [facility] Internal Medicine [address] [place], [place] [phone] Luther Camara MD [address] [place], [place] [phone] documented as of this encounter Visit Diagnoses Not on filedocumented in this encounter Additional Health Concerns Assessment Noted Time PHQ-9 Depression Total Score: 0 01/21/20 15 10:54 AM EDT PHQ-2 Depression Total Score: 0 06/15/19 24 4:11 PM EST documented as of this encounter Care Teams Senior Ruby Developer Relationship Specialty Start Date End Date Luther Camara MD [address] [place] [address] PCP - General 09/18/14 Marcellus Mojica MD [address] [place] [address] Cardiology 01/20/15 Wild Rutledge MD [email or web address] Cardiology 08/16/16 Luther Camara MD [address] [place] [address] Historical LMR Provider 03/04/17 Roddy Chris MD [address] [place] [address] [place] [address] Line Service Technician Internal Medicine 07/21/20 Luther Camara MD [address] [place] [address] [email or web address] Insurance Assigned Provider 02/18/24 documented as of this encounter Additional Source Comments The information contained in this document represents components of the legal health record. It is not the complete legal health record.[facility]
--- OUTSIDE RECORDS SUMMARY | 2025-01-15 10:43 | XMS_ITS | Clinical Summary ---
Author Organization [facility] Address [address] [place] [address] Phone Care Team Providers Care Registered Radiographer Name Role Phone Luther Camara MD Primary Care Provider [phone] Marcellus Mojica MD Unavailable [phone] Wild Rutledge MD Unavailable [email or web address] Luther Camara MD Unavailable [phone] Peri-Roddy Ramos MD Unavailable [phone] Luther Camara MD Unavailable [phone] Allergies No known active allergies Medications metoprolol succinate (TOPROL-XL) 50 MG 24 hr tablet Take 50 mg by mouth daily. Active aspirin 81 MG EC tablet Take 81 mg by mouth daily. Active MULTIVITS/IRON FUM/FA/D3/LYCOP (MULTI FOR HIM ORAL) 1 cap(s) Orally daily Active fluticasone propionate (FLONASE) 50 mcg/actuation nasal spray 50 sprays by Nasal route as needed. 12/07/2019 Active lisinopril (PRINIVIL,ZESTRIL ) 20 MG tabletIndications :Essential hypertension Take 1 tablet (20 mg total) by mouth daily. 90 tablet 3 12/02/2024 Active Active Problems Problem Noted Date Diagnosed Date Acute left-sided low back pain without sciatica 09/11/2023 correction (current) use of aspirin 09/11/2023 Hyperlipidemia 08/22/2022 Overview (09/11/2023): Last Assessment & Plan: Followed by his PCP. He is working on his diet and exercise for the next three months and will follow up with a fasting lipid panel in December. I have reviewed with the patient the importance of a heart healthy lifestyle which includes eating a low- fat low-salt diet, getting regular exercise, maintaining a healthy weight, not smoking, and following up with routine medical care. Hypertension 05/01/2020 Overview (09/11/2023): Last Assessment & Plan: Patient has a history of hypertension. His blood pressure is well controlled today with a reading of 118/80. He continues on his current antihypertensive medication regimen with metoprolol and lisinopril. No changes made today. He will continue monitoring his blood pressures at home and notify us if they remain consistently elevated. Ascending aortic aneurysm 05/01/2020 Overview (09/11/2023): S/p repair 2007 follows at [facility] cardiac surgery Last Assessment & Plan: This patient has a history of ascending aortic aneurysm status post valve sparing root replacement and faviola-arch replacement in 2007. He is followed by the cardiac surgery service at [facility]. He recently had his two year echocardiogram and MRI with Dr. Aguero. Aortic aneurysm 01/20/2015 Overview (07/04/2018): 2019R1.3 IMO Load Encounters Date Type Department Care Team Description 12/23/2024 Orders Only [facility] Internal Medicine [address] [place] [address] Kamila Mejia MD 12/02/2024 Refill [facility] Internal Medicine [address] [place] [address] Luther Camara MD Medication Refill from Last 3 Months Immunizations Immunization Administration Dates Next Due COVID-19 (Pre-03/06) Moderna Vaccine, mRNA, PF 06/13/2020,05/16/2020 INFLUENZA, SPLIT VIRUS, TRIVALENT PF 02/19/2024, 02/21/2017 INFLUENZA, SPLIT VIRUS, TRIV ALENT W/ PRESERVATIVE IM 01/22/2021,03/16/2016,02/03/2015,2013,03/06/2013,02/17/2012,03/02/2011 Influenza Quadrivalent MDCK Preservative Free IM 01/28/2022 Influenza Quadrivalent MDCK w/Preservative IM 02/20/2019 Influenza Quadrivalent Prese rvative Free IM 02/05/2023,01/17/2020,02/20/2019,2017,03/16/2016,02/03/2015 Influenza, Unspecified Formulation 02/25,03/25/2008(Deferred: Patient Decision - already received this year) Pneumococcal conjugate PCV20 10/14/2024 Td (adult) 5 Lf Tetanus Toxo id, PF, Adsorbed 07/13/2005 Td (adult),2 Lf Tetanus Toxo id, PF, Adsorbed 12/22/2017 Tdap 11/12/2013 Zoster recombinant 07/10/2018,02/19/2018 Family History Medical History Relation Comments Diabetes Mother Relation Status Comments Mother Social History Tobacco Use Types Packs/Day Years Used Date Smoking Tobacco: Never Smokeless Tobacco: Never Tobacco Cessation:Counseling Given: Not Answered Alcohol Use Standard Drinks/Week Comments Yes 6 (1 standard drink = 0.6 oz pur e alcohol) Child or Family Care Answer Date Record ed Do you have problems with on e of the following making it difficult for you to work, study, or receive health care? No 10/08/2024 Education Answer Date Recorded Are you interested in help w ith more adult education (for example, completing high school, GED, job training, learning the Mauritian language, technical skills, or developing parenting skills)? No 10/08/2024 Are you concerned about learning? Not on file 10/08/2024 No 10/08/2024 Yes 10/08/2024 Food Answer Date Recorded Within the past 6 months we worried whether our food would run out before we got money to buy more. Never True 10/08/2024 Within the past 6 months the food we bought just didn't last and we didn't have enough money to get more. Never True Residential Stability Answer Date Recor ded What is your housing situation today? I have dimitri sinclair 10/08/2024 How many times have you move d in the past 12 months? Zero (I did not move) 10/08/2024 Paying for Meds Answer Date Recorded Do you have trouble paying for medicines? No 10/08/2024 Paying Utility Bills Answer Date Record ed Do you have trouble paying your heating or elect ricity bill? No 10/08/2024 Transportation Answer Date Recorded Has the lack of transportati on kept you from medical appointments or from getting medications? No 10/08/2024 Unemployment Answer Date Recorded Are you currently unemployed or working on a part-time or temporary basis, and looking for work? No 06/14/2022 Digital Access Answer Date Recorded No 10/08/2024 Yes 10/08/2024 Do you have reliable internet access at home? Ye s 10/08/2024 Do you have a device (e.g., phone, tablet, computer) with a working camera? Yes 10/08/2024 Intimate Partner Violence Answer Date R ecorded Denied Basic Needs Not on file 10/08/2024 In the past 12 months have y ou been in a relationship with a person who hurts, threatens, or tries to control you? No 10/08/2024 Worried food would run out Not on file 10/08 In the past 12 months have y ou been in a relationship with a person who hurts, threatens, or tries to control you? No 10/08/2024 Sex and Gender Information Value Date Recorded Sex Assigned at Male 12/27/2023 1:26 PM EDT Legal Sex Male 7:36 PM EST Gender Identity Male 12/27/2023 1:26 PM EDT Sexual Orientation Straight 12/27/2023 1: 26 PM EDT Last Filed Vital Signs Vital Sign Reading Time Taken Comments Blood Pressure 126/62 10/14/2024 1:35 PM EDT Pulse 64 10/14/2024 1:35 PM EDT Temperature 36.6 C (97.8 F) 10/14/2024 1:35 PM EDT Respiratory Rate 16 10/14/2024 1:35 PM EDT Oxygen Saturation 97% 10/14/2024 1:35 PM EDT Inhaled Oxygen Concentration - - Weight 82.6 kg (182 lb) 10/14/2024 1:35 PM EDT Height 179.8 cm (5' 10.79 ) 10/14/2024 1:35 PM E DT Body Mass Index 25.54 10/14/2024 1:35 PM EDT Plan of Treatment Upcoming Encounters Date Type Department Care Team (Late st Contact Info) Description 10/17/2025 9:00 AM EDT Office Visit [facility] Internal Medicine [address] [place] [address] Luther Camara MD [address] [place] [address] [email or web address] Maintenance Due Date Last Done Comments COLOGUARD 11/09/2004 FIT TEST 11/09/2004 FOBT 11/09/2004 SIGMOIDOSCOPY 11/09/2004 VIRTUAL COLONOSCOPY 11/09/2004 COVID-19 VACCINE ( season) 2024 02/19/2024, 02/05/2023, 01/28/2022, Additional history exists INFLUENZA VACCINE (#1) 2024 , 02/05/2023, 01/28/2022, Additional history exists BLOOD PRESSURE 04/15/2025 10/14/2024 CREATININE LEVEL 10/08/2025 10/08/2024, , 06/09/2022, Additional history exists DEPRESSION SCREENING 10/08/2025 10/08/2024, 01/21/20 15 LIPID PANEL 10/08/2025 10/08/2024, 05/17, 06/09/2022, Additional history exists POTASSIUM LEVEL 10/08/2025 10/08/2024, 05/17, 06/09/2022, Additional history exists SCREENING FOR DIABETES 10/09/2027 10/08/2024, 2024 Adult Td,Tdap Booster 12/23/2027 12/22/2017 , 11/12/2013, 07/13/2005 COLONOSCOPY 05/26/2030 05/26/2020, 04/15, 04/30/2010 COLORECTAL CANCER SCREENING 05/26/2030 RSV VACCINE (1 - 1-dose 75+ series) 11/09/2034 HEPATITIS C SCREENING Completed 06/04/2010 ZOSTER VACCINES Completed 07/10/2018, 02/19/2018 HIV ONE-TIME SCREENING (18-65 YEARS) Completed 06/14/2023 PNEUMOCOCCAL VACCINES (50+ years) Completed 10/14/2024 SMOKING STATUS SCREENING (Once After 26 Yrs) Completed 10/14/2024 HEPATITIS A VACCINES Aged Out No long er eligible based on patient's age to complete this topic HIB VACCINES Aged Out No longer eligi ble based on patient's age to complete this topic MENINGOCOCCAL VACCINES (ACWY) Aged Out No longer eligible based on patient's age to complete this topic MENINGOCOCCAL VACCINES (B) Aged Out N o longer eligible based on patient's age to complete this topic Medical Devices Not on file Procedures Procedure Name Priority Date/Time Associated Diagnosis Comments DERMATOPATHOLOGY Routine 12/06/2024 4:14 PM EDT LIPID PANEL Routine 10/08/2024 8:47 AM EDT Essential hypertension Pure hypercholesterolemia COMPREHENSIVE METABOLIC PANEL Routine 10/08/2024 8:47 AM EDT Essential hypertension Pure hypercholesterolemia HM COLONOSCOPY FOR RESULT ENTRY ONLY Routine 05/26/2020 OUTSIDE HEPATITIS C VIRUS SCREENING Routine 06/04/2010 from Last 3 Months or Most Recently Relevant to Health Maintenance Results * Dermatopathology (12/06/2024 4:14 PM EDT) us Historical Provider PATHOLOGY ORDERABLES Denise l Result * (ABNORMAL) Comprehensive metabolic panel (10/08/2024 8:47 AM EDT) SODIUM 138 133 - 146 mmol/L [facility] POTASSIUM 4.1 3.3 - 5.1 mmol/L [facility] CHLORIDE 101 96 - 108 mmol/L [facility] CO2 25 21 - 35 mmol/L [facility] BUN 18 6 - 19 mg/dL [facility] CREATININE 1.00 0.5 - 1.5 mg/dL [facility] GLUCOSE 101(H) 70 - 99 mg/dL [facility] ALBUMIN 4.5 3.9 - 4.8 g/dL [facility] TOTAL PROTEIN 7.4 6.5 - 8.0 g/dL [facility] CALCIUM 9.7 8.4 - 10.3 mg/dL [facility] ALKALINE PHOSPHATASE 46 39 - 117 U/L [facility] TOTAL BILIRUBIN 0.9 0.0 - 1.2 mg/dL [facility] AST 23 0 - 37 U/L [facility] ALT 15 0 - 40 U/L [facility] GLOBULIN 2.9 1 - 4.8 g/dL [facility] EGFR 84 >59 mL/min/1.7 3m2 [facility] Comment:Estimated glomerular filtration rate calculated using the CKD-EPI refit equation. ANION GAP 16 10 - 20 mmol/L [facility] Blood 10/08/2024 8:47 AM EDT 10/08/2024 8:50 AM EDT us Luther Camara MD LAB BLOOD ORDERABLES Final Re sult [address] [address] * Lipid panel (10/08/2024 8:47 AM EDT) HDL 47 mg/dL [facility] Comment: Interpretation <40 mg/dL: Low HDL cholesterol (major risk factor for CHD) Greater than or equal to 60 mg/dL: High HDL cholesterol ( negative risk factor for CHD) HDL - cholesterol is affected by a number of factors, e.g. smoking, excerise, hormones, sex and age. CHOLESTEROL 194 0 - 240 mg/dL [facility] TRIGLYCERIDES 95 30 - 160 mg/dL [facility] LDL 128 50 - 129 mg/dL [facility] Comment: LDL levels in terms of risk for coronary heart disease: <100 mg/dL: Optimal 100-129 mg/dL: Near or above optimal 130-159 mg/dL: Borderline high 160-189 mg/dL: High >190 mg/dL: Very High CARDIAC RISK RATIO 4.1 3.4 - 5.0 [facility] Blood 10/08/2024 8:47 AM EDT 10/08/2024 8:50 AM EDT Luther Camara MD LAB BLOOD ORDERABLES Final Re sult [address] [address] * COLONOSCOPY FOR RESULT ENTRY ONLY (05/26/2020) Historical Provider HEALTH MAINTENANCE Final Result * Outside Hepatitis C Virus Screening (06/04/2010) [facility] Signature Hepatitis C Screening - External Neg Historical Jackie MASON LAB BLOOD ORDERABLES Denise l Result from Last 3 Months or Most Recently Relevant to Health Maintenance Insurance [facility] MEDEX SUPPLEMENT MEDICARE PART A & B [employer] MEDEX SUPPLEMENT MEDICARE PART A & B [employer] MEDEX SUPPLEMENT MEDICARE PART A & B [employer] MEDEX SUPPLEMENT MEDICARE PART A & B [employer] MEDEX SUPPLEMENT MEDICARE PART A & B [facility] MEDEX SUPPLEMENT MEDICARE PART A & B Care Teams Registered Radiographer Relationship Specialty Start Date End Date Luther Camara MD [address] [place] [address] PCP - General 09/18/14 Marcellus Mojica MD [address] [place] [address] Cardiology 01/20/15 Wild Rutledge MD [email or web address] Cardiology 08/16/16 Luther Camara MD [address] [place] [address] Historical LMR Provider 03/04/17 Roddy Chris MD [address] [place] [address] [place] [address] Soft Work Wrapper Layer And Examiner Internal Medicine 07/21/20 Luther Camara MD [address] [place] [address] Insurance Assigned Provider 02/18/24 Additional Source Comments The information contained in this document represents components of the legal health record. It is not the complete legal health record.[facility]
--- OUTSIDE RECORDS SUMMARY | 2025-01-15 10:43 | XMS_ITS | Encounter Summary ---
Author Organization [facility] Address [address] [place] [address] [place] [address] Phone Care Team Providers Care Prescription Eyeglass Maker Name Role Phone Luther Camara MD Primary Care Provider [phone] Marcellus Mojica MD Unavailable [phone] Wild Rutledge MD Unavailable [email or web address] Luther Camara MD Unavailable [phone] PeriRoddy Ramos MD Unavailable [phone] Luther Camara MD Unavailable [phone] Encounter Details Date Type Department Care Team (Late st Contact Info) Description 06/01/2018 Procedure Pass [facility] [address] [place] [address] Social History Tobacco Use Types Packs/Day Years [...] Description 10/17/2025 9:00 AM EDT Office Visit [facility] Internal Medicine [address] [place] [address] Luther Camara MD [address] [place] [address] [email or web address] documented as of this encounter Visit Diagnoses Not on filedocumented in this encounter Additional Health Concerns Assessment Noted Time PHQ-9 Depression Total Score: 0 01/21/20 15 10:54 AM EDT PHQ-2 Depression Total Score: 0 07/25/19 19 2:31 PM EDT documented as of this encounter Care Teams Prescription Eyeglass Maker Relationship Specialty Start Date End Date Luther Camara MD [address] [place] [address] PCP - General 09/18/14 Marcellus Mojica MD [address] [place] [address] Cardiology 01/20/15 Wild Rutledge MD [email or web address] Cardiology 08/16/16 Luther Camara MD [address] [place] [address] [email or web address] Historical LMR Provider 03/04/17 Roddy Chris MD [address] [place] [address] [place] [address] Bat Boy/Girl Internal Medicine 07/21/20 Luther Camara MD [address] [place] [address] [id number] [email or web address] Insurance Assigned Provider 02/18/24 documented as of this encounter Additional Source Comments The information contained in this document represents components of the legal health record. It is not the complete legal health record.[facility]
--- OUTSIDE RECORDS SUMMARY | 2025-01-15 10:43 | XMS_ITS | Encounter Summary ---
Author Organization [facility] Address [address] [facility] [address] [place] [address] Phone Care Team Providers Care Emr Specialist Name Role Phone Luther Camara MD Primary Care Provider [phone] Marcellus Mojica MD Unavailable [phone] Wild Rutledge MD Unavailable [email or web address] Luther Camara MD Unavailable [phone] PeriRoddy Ramos MD Unavailable [phone] Luther Camara MD Unavailable [phone] Encounter Details Date Type Department Care Team (Late st Contact Info) Description 05/13/2020 Procedure Pass [facility] [address] [place] [address] Social History Tobacco Use Types Packs/Day Years [...] Description 10/17/2025 9:00 AM EDT Office Visit [facility] Internal Medicine [address] [place] [address] Luther Camara MD [address] [place] [address] [email or web address] documented as of this encounter Visit Diagnoses Not on filedocumented in this encounter Additional Health Concerns Assessment Noted Time PHQ-9 Depression Total Score: 0 01/21/20 10:54 AM EDT PHQ-2 Depression Total Score: 0 07/22/19 10:14 AM EST documented as of this encounter Care Teams Emr Specialist Relationship Specialty Start Date End Date Luther Camara MD [address] [place] [address] PCP - General 09/18/14 Marcellus Mojica MD [address] [place] [address] Cardiology 01/20/15 Wild Rutledge MD [email or web address] Cardiology 08/16/16 Luther Camara MD [address] [place] [address] Historical LMR Provider 03/04/17 Roddy Chris MD [address] [place] [address] [place] [address] Mock Up Maker Internal Medicine 07/21/20 Luther Camara MD [address] [place] [address] [email or web address] Insurance Assigned Provider 10/6/24 documented as of this encounter Additional Source Comments The information contained in this document represents components of the legal health record. It is not the complete legal health record.[facility]
--- OUTSIDE RECORDS SUMMARY | 2025-01-15 10:43 | XMS_ITS | Encounter Summary ---
Author Organization [facility] Address [address] [facility] [address] [place] [address] Phone Care Team Providers Care Coal Deliverer Name Role Phone Luther Camara MD Primary Care Provider [phone] Marcellus Mojica MD Unavailable [phone] Wild Rutledge MD Unavailable [email or web address] Luther Camara MD Unavailable [phone] Roddy Chris MD Unavailable [phone] Luther Camara MD Unavailable [phone] Encounter Details Date Type Department Care Team (Late st Contact Info) Description 12/23/2024 Orders Only [facility] Internal Medicine [address] [place] [facility] [place] [address] Provider, MD Kamila [address] [place] [address] Social History Tobacco Use Types Packs/Day Years Used Date Smoking Tobacco: Never Smokeless Tobacco: Never Alcohol Use Standard Drinks/Week Comments Yes 6 [...] high school, GED, job training, learning the Japanese language, technical skills, or developing parenting skills)? [...] housing situation today? I have dimitri sing 10/08/2024 How many times have you move [...] Description 10/17/2025 9:00 AM EDT Office Visit [facility] Internal Medicine [address] [place] [address] Luther Camara MD [address] [place] [address] documented as of this encounter Procedures Procedure Name Priority Date/Time Associated Diagnosis Comments DERMATOPATHOLOGY Routine 12/06/2024 4:14 PM EDT documented in this encounter Results * Dermatopathology (12/06/2024 4:14 PM EDT) us Historical Provider PATHOLOGY ORDERABLES Denise l Result documented in this encounter Visit Diagnoses Not on filedocumented in this encounter Additional Health Concerns Assessment Noted Time PHQ-9 Depression Total Score: 0 01/21/20 15 10:54 AM EDT PHQ-2 Depression Total Score: 0 10/09/19 10:06 AM EDT documented as of this encounter Care Teams Coal Deliverer Relationship Specialty Start Date End Date Luther Camara MD [address] [place] [address] PCP - General 09/18/14 Marcellus Mojica MD [address] [place] [address] Cardiology 01/20/15 Wild Rutledge MD [email or web address] Cardiology 08/16/16 Luther Camara MD [address] [place] [address] Historical LMR Provider 03/04/17 Roddy Chris MD [address] [place] [address] [place] [address] Technical Writer And Editor Internal Medicine 07/21/20 Luther Camara MD [address] [place] [address] [email or web address] Insurance Assigned Provider 02/18/24 documented as of this encounter Additional Source Comments The information contained in this document represents components of the legal health record. It is not the complete legal health record.[facility]
--- OUTSIDE RECORDS SUMMARY | 2025-01-15 10:43 | XMS_ITS | Encounter Summary ---
Author Organization [facility] Address [address] [facility] [address] [place] [address] Phone Care Team Providers Care Underbaster Name Role Phone Luther Camara MD Primary Care Provider [phone] Marcellus Mojica MD Unavailable [phone] Wild Rutledge MD Unavailable [email or web address] Luther Camara MD Unavailable [phone] Roddy Chris MD Unavailable [phone] Luther Camara MD Unavailable [phone] Encounter Details Date Type Department Care Team (Late st Contact Info) Description 12/27/2023 Procedure Pass [facility] [address] [place] [address] Social History Tobacco Use Types Packs/Day Years [...] high school, GED, job training, learning the Mosoth[place] language, technical skills, or developing parenting skills)? [...] Description 10/17/2025 9:00 AM EDT Office Visit [facility] Internal Medicine [address] [place], [place] [id number] Luther Camara MD [address] [place] [address] documented as of this encounter Visit Diagnoses Not on filedocumented in this encounter Additional Health Concerns Assessment Noted Time PHQ-9 Depression Total Score: 0 01/21/20 15 10:54 AM EDT PHQ-2 Depression Total Score: 0 06/15/19 24 4:11 PM EST documented as of this encounter Care Teams Underbaster Relationship Specialty Start Date End Date Luther Camara MD [address] [place] [address] PCP - General 09/18/14 Marcellus Mojica MD [address] [place] [address] Cardiology 01/20/15 Wild Rutledge MD [email or web address] Cardiology 08/16/16 Luther Camara MD [address] [place] [address] Historical LMR Provider 03/04/17 Roddy Chris MD [address] [place] [address] [place] [address] Pickle Sorter Internal Medicine 07/21/20 Luther Camara MD [address] [place] [address] [email or web address] Insurance Assigned Provider 02/18/24 documented as of this encounter Additional Source Comments The information contained in this document represents components of the legal health record. It is not the complete legal health record.[facility]
--- OUTSIDE RECORDS SUMMARY | 2025-01-15 10:43 | XMS_ITS | Encounter Summary ---
Author Organization [facility] Address [address] [employer] [address] [employer] [facility] [address] [place] [address] Phone Care Team Providers Care Edge Banding Off Bearer Name Role Phone Luther Camara MD Primary Care Provider [phone] Marcellus Mojica MD Unavailable [phone] Wild Rutledge MD Unavailable [email or web address] Luther Camara MD Unavailable [phone] Roddy Chris MD Unavailable [phone] Luther Camara MD Unavailable [phone] Encounter Details Date Type Department Care Team (Late st Contact Info) Description 02/03/2022 Procedure Pass [facility] Radiology [address] [place] [address] Social History Tobacco Use Types Packs/Day Years [...] high school, GED, job training, learning the Argentine language, technical skills, or developing parenting skills)? [...] Description 10/17/2025 9:00 AM EDT Office Visit [facility] Internal Medicine 40 [place] [address] Luther Camara MD 40 [place] [address] [email or web address] documented as of this encounter Visit Diagnoses Not on filedocumented in this encounter Additional Health Concerns Assessment Noted Time PHQ-9 Depression Total Score: 0 01/21/20 15 10:54 AM EDT PHQ-2 Depression Total Score: 0 06/14/19 23 3:38 PM EST documented as of this encounter Care Teams Edge Banding Off Bearer Relationship Specialty Start Date End Date Luther Camara MD 40 [place] [address] [email or web address] PCP - General 09/18/14 Marcellus Mojica MD [address] [place] [address] Cardiology 01/20/15 Wild Rutledge MD [email or web address] Cardiology 08/16/16 Luther Camara MD [address] [place] [address] [email or web address] Historical LMR Provider 03/04/17 Roddy Chris MD [address] [place] [address] [place] [address] Sleep Lab Technologist Internal Medicine 07/21/20 Luther Camara MD [address] [place] [address] [email or web address] Insurance Assigned Provider 02/18/24 documented as of this encounter Additional Source Comments The information contained in this document represents components of the legal health record. It is not the complete legal health record.[facility]
== END 2025-01-15 09:45 | disposition home or self-care (01) ==
LOC: HO.HMGAL 09:43
PROVIDERS: PCP Internal Medicine; Visit Provider Registered Nurse Emergency
DX: J30.89 Other allergic rhinitis (principal)
CPT/HCPCS: 95117; 95165

== ENCOUNTER 2025-03-03 10:46 | Outpatient (AMB) | payer MEDICARE, SELFPAY ==
--- OUTSIDE RECORDS SUMMARY | 2025-03-03 12:59 | XMS_ITS | Encounter Summary ---
Author Organization [facility] Address [address] [place] [address] Phone Care Team Providers Care Nutrition Director Name Role Phone Luther Camara MD Primary Care Provider [phone] Marcellus Mojica MD Unavailable [phone] Wild Rutledge MD Unavailable [email or web address] Luther Camara MD Unavailable [phone] Roddy Chris MD Unavailable [phone] Luther Camara MD Unavailable [phone] Encounter Details Date Type Department Care Team (Late st Contact Info) Description 01/13/2020 Transcribe Orders [facility] [address] [place] [address] [phone] Luther Camara MD [address] [place] [address] [email or web address] Social History Tobacco Use Types Packs/Day Years [...] Description 10/17/2025 9:00 AM EDT Office Visit [facility] Internal Medicine 40 [place] [address] Luther Camara MD 40 [place] [address] documented as of this encounter Visit Diagnoses Not on filedocumented in this encounter Additional Health Concerns Assessment Noted Time PHQ-9 Depression Total Score: 0 01/21/20 10:54 AM EDT PHQ-2 Depression Total Score: 0 12/31/19 2:53 PM EDT documented as of this encounter Care Teams Nutrition Director Relationship Specialty Start Date End Date Luther Camara MD 40 [place] [address] PCP - General 09/18/14 Marcellus Mojica MD [address] [place] [address] Cardiology 01/20/15 Wild Rutledge MD [email or web address] Cardiology 08/16/16 Luther Camara MD [address] [place] [address] Historical LMR Provider 03/04/17 Roddy Chris MD [address] [place] [address] [place] [address] Architectural Drafting Instructor Internal Medicine 07/21/20 Luther Camara MD [address] [place] [address] [email or web address] Insurance Assigned Provider 02/18/24 01/18/25 documented as of this encounter Additional Source Comments The information contained in this document represents components of the legal health record. It is not the complete legal health record.[facility]
--- OUTSIDE RECORDS SUMMARY | 2025-03-03 12:59 | XMS_ITS | Encounter Summary ---
Author Organization [facility] Address [address] [employer] [facility] [address] [place] [address] Phone Care Team Providers Care Registered Dietetic Technician Name Role Phone Luther Camara MD Primary Care Provider [phone] Marcellus Mojica MD Unavailable [phone] Wild Rutledge MD Unavailable [email or web address] Luther Camara MD Unavailable [phone] Roddy Chris MD Unavailable [phone] Luther Camara MD Unavailable [phone] Encounter Details Date Type Department Care Team (Late st Contact Info) Description 12/27/2023 Procedure Pass [facility]'s Radiology 70 [place] [address] Social History Tobacco Use Types Packs/Day Years [...] high school, GED, job training, learning the Georgian language, technical skills, or developing parenting skills)? [...] Description 10/17/2025 9:00 AM EDT Office Visit [facility] Internal Medicine 40 [place], [place] [phone] Luther Camara MD 40 [place] [address] documented as of this encounter Visit Diagnoses Not on filedocumented in this encounter Additional Health Concerns Assessment Noted Time PHQ-9 Depression Total Score: 0 01/21/20 15 10:54 AM EDT PHQ-2 Depression Total Score: 0 06/15/19 24 4:11 PM EST documented as of this encounter Care Teams Registered Dietetic Technician Relationship Specialty Start Date End Date Luther Camara MD 40 [place] [address] PCP - General 09/18/14 Marcellus Mojica MD [address] [place] [address] Cardiology 01/20/15 Wild Rutledge MD [email or web address] Cardiology 08/16/16 Luther Camara MD [address] [place] [address] Historical LMR Provider 03/04/17 Roddy Chris MD [address] [place] [address] [place] [address] Labor Relations Supervisor Internal Medicine 07/21/20 Luther Camara MD [address] [place] [address] [email or web address] Insurance Assigned Provider 02/18/24 01/18/25 documented as of this encounter Additional Source Comments The information contained in this document represents components of the legal health record. It is not the complete legal health record.[facility]
--- OUTSIDE RECORDS SUMMARY | 2025-03-03 13:00 | XMS_ITS | Encounter Summary ---
Author Organization [facility] Address [address] [place] [address] [place] [address] Phone Care Team Providers Care Handbag Frames Inspector Name Role Phone Luther Camara MD Primary Care Provider [phone] Marcellus Mojica MD Unavailable [phone] Wild Rutledge MD Unavailable [email or web address] Luther Camara MD Unavailable [phone] PeriRoddy Ramos MD Unavailable [phone] Luther Camara MD Unavailable [phone] Encounter Details Date Type Department Care Team (Late st Contact Info) Description 05/13/2020 Procedure Pass [facility] Radiology 70 [place] [address] Social History Tobacco Use Types Packs/Day Years [...] Office Visit [facility] Internal Medicine 40 [place] [address] Luther Camara MD 40 [place] [address] [email or web address] documented as of this encounter Visit Diagnoses Not on filedocumented in this encounter Additional Health Concerns Assessment Noted Time PHQ-9 Depression Total Score: 0 01/21/20 10:54 AM EDT PHQ-2 Depression Total Score: 0 07/22/19 10:14 AM EST documented as of this encounter Care Teams Handbag Frames Inspector Relationship Specialty Start Date End Date Luther Camara MD [address] [place] [address] PCP - General 09/18/14 Marcellus Mojica MD [address] [place] [address] Cardiology 01/20/15 Wild Rutledge MD [email or web address] Cardiology 08/16/16 Luther Camara MD [address] [place] [address] [email or web address] Historical LMR Provider 03/04/17 Roddy Chris MD [address] [place] [address] [place] [address] Echometer Engineer Internal Medicine 07/21/20 Luther Camara MD [address] [place] [address] [email or web address] Insurance Assigned Provider 02/18/24 01/18/25 documented as of this encounter Additional Source Comments The information contained in this document represents components of the legal health record. It is not the complete legal health record.[facility]
--- OUTSIDE RECORDS SUMMARY | 2025-03-03 13:00 | XMS_ITS | Encounter Summary ---
Author Organization [facility] Address [address] [employer] [facility] [address] [place] [address] Phone Care Team Providers Care Library Media Assistant Name Role Phone Luther Camara MD Primary Care Provider [phone] Marcellus Mojica MD Unavailable [phone] Wild Rutledge MD Unavailable [email or web address] Luther Camara MD Unavailable [phone] Roddy Chris MD Unavailable [phone] Luther Camara MD Unavailable Encounter Details Date Type Department Care Team (Late st Contact Info) Description 12/27/2023 Procedure Pass [facility] Radiology 70 [place] [address] Social History Tobacco Use Types Packs/Day Years [...] high school, GED, job training, learning the French language, technical skills, or developing parenting skills)? [...] Description 10/17/2025 9:00 AM EDT Office Visit [facility] Internal Medicine 40 [place], [place] [phone] Luther Camara MD 40 [place] [address] documented as of this encounter Visit Diagnoses Not on filedocumented in this encounter Additional Health Concerns Assessment Noted Time PHQ-9 Depression Total Score: 0 01/21/20 15 10:54 AM EDT PHQ-2 Depression Total Score: 0 06/15/19 24 4:11 PM EST documented as of this encounter Care Teams Library Media Assistant Relationship Specialty Start Date End Date Luther Camara MD 40 [place] [address] PCP - General 09/18/14 Marcellus Mojica MD [address] [place] [address] Cardiology 01/20/15 Wild Rutledge MD [email or web address] Cardiology 08/16/16 Luther Camara MD [address] [place] [address] Historical LMR Provider 03/04/17 Roddy Chris MD [address] [place] [address] [place] [address] Ultrasonic Welding Machine Operator Internal Medicine 07/21/20 Luther Camara MD [address] [place] [address] [email or web address] Insurance Assigned Provider 02/18/24 01/18/25 documented as of this encounter Additional Source Comments The information contained in this document represents components of the legal health record. It is not the complete legal health record.[facility]
--- OUTSIDE RECORDS SUMMARY | 2025-03-03 13:00 | XMS_ITS | Patient Health Record ---
Author Organization [facility] Address [address] [place] [address] Care Team Providers Care Shoe Worker Name Role Phone Luther Camara MD Primary Care Provider Memo Baer Jr Unavailable [phone] Reason For Referral No Information Medications Medication SIG (Take, Route, Frequency, Duration) Notes Start Date End Date Status MiraLax (colon prep) 8.3 ounce ((238) grams mixed with Gatorade or Crystal Light orally begin at 5:00 p.m. the day before the procedure; Duration: 1 day 03/25/2020 Active Metoprolol Succinate 50 MG 1 capsule Ora lly Once a day; Duration: 30 day(s) Active Aspirin 81 81 MG 1 tablet Orally Once a day; Duration: 30 day(s) Active Lisinopril 20 MG 1 tablet Orally Once a day; Duration: 30 day(s) Active Ibuprofen PRN Active Multivitamin [...] Problem Status W/U Status Risk Notes Problem Colon cancer screening (608465632) Colon cancer screening (Z12.11) Active confirmed Problem Pre-procedure evaluation check (854155113) Encounter for other preprocedural examination (Z01.818) Active confirmed Problem Long-term current use of antiplatelet drug (126579637545876 ) FDC (current) use of aspirin (Z79.82) Active confirmed Plan Of Treatment Future Test Test Name Order Date COLONOSCOPY 03/25/2020 Insurance Providers Payer Name Payer Address Payer Phone Subscriber Number Group Number Insured Name Patient Relationship to Insured Coverage Start Date Coverage End Date [facility] [address] [facility] [place], [place] [phone] [id number] [employer] Self - patient is the insured Medical (General) History Medical History History ICD Code hypertension Aortic aneurysm CVA/PFO Surgical History Surgery Date(Month/Year) Aortic aneurysm repair hernia repair x2 PFO repair at time of aneurysm repair
--- OUTSIDE RECORDS SUMMARY | 2025-03-03 13:00 | XMS_ITS | Encounter Summary ---
Author Organization [facility] Address [address] [place] [address] [place] [address] Phone Care Team Providers Care Railroad Track Inspector Name Role Phone Luther Camara MD Primary Care Provider [phone] Marcellus Mojica MD Unavailable [phone] Wild Rutledge MD Unavailable [email or web address] Luther Camara MD Unavailable [phone] PeriRoddy Ramos MD Unavailable [phone] Luther Camara MD Unavailable [phone] Encounter Details Date Type Department Care Team (Late st Contact Info) Description 06/01/2018 Procedure Pass [facility] Radiology 70 [place] [address] Social History Tobacco Use Types Packs/Day Years [...] Description 10/17/2025 9:00 AM EDT Office Visit [facility] Internal Medicine 40 [place] [address] Luther Camara MD 40 [place], [place] [phone] [email or web address] documented as of this encounter Visit Diagnoses Not on filedocumented in this encounter Additional Health Concerns Assessment Noted Time PHQ-9 Depression Total Score: 0 01/21/20 15 10:54 AM EDT PHQ-2 Depression Total Score: 0 07/25/19 19 2:31 PM EDT documented as of this encounter Care Teams Railroad Track Inspector Relationship Specialty Start Date End Date Luther Camara MD [address] [place] [address] PCP - General 09/18/14 Marcellus Mojica MD [address] [place] [address] Cardiology 01/20/15 Wild Rutledge MD [email or web address] Cardiology 08/16/16 Luther Camara MD [address] [place] [address] [email or web address] Historical LMR Provider 03/04/17 Roddy Chris MD [address] [place] [address] [place] [address] Hand Binder Stripper Internal Medicine 07/21/20 Luther Camara MD [address] [place] [phone] [email or web address] Insurance Assigned Provider 02/18/24 01/18/25 documented as of this encounter Additional Source Comments The information contained in this document represents components of the legal health record. It is not the complete legal health record.[facility]
--- OUTSIDE RECORDS SUMMARY | 2025-03-03 13:00 | XMS_ITS | Encounter Summary ---
Author Organization [facility] Address [address] [employer] [facility] [address] [place] [address] Phone Care Team Providers Care Biophysics Scientist Name Role Phone Luther Camara MD Primary Care Provider [phone] Marcellus Mojica MD Unavailable [phone] Wild Rutledge MD Unavailable [email or web address] Luther Camara MD Unavailable [phone] Roddy Chris MD Unavailable [phone] Luther Camara MD Unavailable [phone] Encounter Details Date Type Department Care Team (Late st Contact Info) Description 02/03/2022 Procedure Pass [facility]'s Radiology [address] [place] [address] Social History Tobacco Use Types Packs/Day Years [...] high school, GED, job training, learning the Syriac language, technical skills, or developing parenting skills)? [...] Office Visit [facility] Internal Medicine 40 [place] [address] Luther Camara MD 40 [place] [address] [email or web address] documented as of this encounter Visit Diagnoses Not on filedocumented in this encounter Additional Health Concerns Assessment Noted Time PHQ-9 Depression Total Score: 0 01/21/20 15 10:54 AM EDT PHQ-2 Depression Total Score: 0 06/14/19 23 3:38 PM EST documented as of this encounter Care Teams Biophysics Scientist Relationship Specialty Start Date End Date Luther Camara MD [address] [place] [address] [email or web address] PCP - General 09/18/14 Marcellus Mojica MD [address] [place] [address] Cardiology 01/20/15 Wild Rutledge MD [email or web address] Cardiology 08/16/16 Luther Camara MD [address] [place] [address] [email or web address] Historical LMR Provider 03/04/17 Roddy Chris MD [address] [place] [address] [place] [address] Systems Technologist Internal Medicine 07/21/20 Luther Camara MD [address] [place] [address] [email or web address] Insurance Assigned Provider 02/18/24 01/18/25 documented as of this encounter Additional Source Comments The information contained in this document represents components of the legal health record. It is not the complete legal health record.[facility]
--- OUTSIDE RECORDS SUMMARY | 2025-03-03 13:00 | XMS_ITS | Encounter Summary ---
Author Organization [facility] Address [address] [place] [address] Phone Care Team Providers Care Finance Controller Name Role Phone Luther Camara MD Primary Care Provider [phone] Marcellus Mojica MD Unavailable [phone] Wild Rutledge MD Unavailable [email or web address] Luther Camara MD Unavailable [phone] Roddy Chris MD Unavailable [phone] Luther Camara MD Unavailable [phone] Encounter Details Date Type Department Care Team (Late st Contact Info) Description 05/13/2020 Procedure Pass [facility] Echocardiography 70 [place] [address] Social History Tobacco Use Types Packs/Day Years [...] Description 10/17/2025 9:00 AM EDT Office Visit [facility] Internal Medicine 40 [place] [address] Luther Camara MD 40 [place], [place] [phone] [email or web address] documented as of this encounter Visit Diagnoses Not on filedocumented in this encounter Additional Health Concerns Assessment Noted Time PHQ-9 Depression Total Score: 0 01/21/20 15 10:54 AM EDT PHQ-2 Depression Total Score: 0 07/22/19 21 10:14 AM EST documented as of this encounter Care Teams Finance Controller Relationship Specialty Start Date End Date Luther Camara MD [address] [place] [address] PCP - General 09/18/14 Marcellus Mojica MD [address] [place] [address] Cardiology 01/20/15 Wild Rutledge MD [email or web address] Cardiology 08/16/16 Luther Camara MD [address] [place] [address] [email or web address] Historical LMR Provider 03/04/17 Roddy Chris MD [address] [place] [address] [place] [address] Manager Staffing Internal Medicine 07/21/20 Luther Camara MD [address] [place] [address] [email or web address] Insurance Assigned Provider 10/6/24 9/6/25 documented as of this encounter Additional Source Comments The information contained in this document represents components of the legal health record. It is not the complete legal health record.[facility]
--- OUTSIDE RECORDS SUMMARY | 2025-03-03 13:00 | XMS_ITS | Encounter Summary ---
Author Organization [facility] Address [address] [facility] [address] [place] [address] Phone Care Team Providers Care Plaster Helper Name Role Phone Luther Camara MD Primary Care Provider Marcellus Mojica MD Unavailable [phone] Wild Rutledge MD Unavailable [email or web address] Luther Camara MD Unavailable [phone] Roddy Chris MD Unavailable [phone] Luther Camara MD Unavailable [phone] Encounter Details Date Type Department Care Team (Late st Contact Info) Description 02/03/2022 Procedure Pass [facility] Echocardiography 70 [place] [address] Social History Tobacco Use Types Packs/Day Years [...] high school, GED, job training, learning the Mongolian language, technical skills, or developing parenting skills)? [...] 1:26 PM EDT Sexual Orientation Straight 12/27/2023 1 :26 PM EDT documented as of this encounter Plan of Treatment Upcoming Encounters Date Type Department Care Team (Late st Contact Info) Description 10/17/2025 9:00 AM EDT Office Visit [facility] Internal Medicine 40 [place] [address] Luther Camara MD 40 [place] [address] [email or web address] documented as of this encounter Visit Diagnoses Not on filedocumented in this encounter Additional Health Concerns Assessment Noted Time PHQ-9 Depression Total Score: 0 01/21/20 15 10:54 AM EDT PHQ-2 Depression Total Score: 0 06/14/19 23 3:38 PM EST documented as of this encounter Care Teams Plaster Helper Relationship Specialty Start Date End Date Luther Camara MD 40 [place] [address] PCP - General 09/18/14 Marcellus Mojica MD [address] [place] [address] Cardiology 01/20/15 Wild Rutledge MD [email or web address] Cardiology 08/16/16 Luther Camara MD [address] [place] [address] [email or web address] Historical LMR Provider 03/04/17 Roddy Chris MD [address] [place] [address] [place] [address] Relationship Associate Internal Medicine 07/21/20 Luther Camara MD [address] [place] [address] [email or web address] Insurance Assigned Provider 02/18/24 01/18/25 documented as of this encounter Additional Source Comments The information contained in this document represents components of the legal health record. It is not the complete legal health record.[facility]
--- OUTSIDE RECORDS SUMMARY | 2025-03-03 13:00 | XMS_ITS | Encounter Summary ---
Author Organization [facility] Address [address] [facility] [address] [place] [address] Phone Care Team Providers Care Wash House Supervisor Name Role Phone Luther Camara MD Primary Care Provider [phone] Marcellus Mojica MD Unavailable [phone] Wild Rutledge MD Unavailable [email or web address] Luther Camara MD Unavailable [phone] PeriRoddy Ramos MD Unavailable [phone] Luther Camara MD Unavailable [phone] Encounter Details Date Type Department Care Team (Late st Contact Info) Description 08/08/2016 Procedure Pass [facility] Radiology [address] [place] [address] Social History Tobacco Use Types Packs/Day Years [...] 10/17/2025 9:00 AM EDT Office Visit [facility] Internal Medicine [address] [place] [address] Luther Camara MD [address] [place], [place] [id number] documented as of this encounter Visit Diagnoses Not on filedocumented in this encounter Additional Health Concerns Assessment Noted Time PHQ-9 Depression Total Score: 0 01/21/20 10:54 AM EDT PHQ-2 Depression Total Score: 0 01/21/20 10:54 AM EDT documented as of this encounter Care Teams Wash House Supervisor Relationship Specialty Start Date End Date Luther Camara MD [address] [place] [address] PCP - General 09/18/14 Marcellus Mojica MD [address] [place] [address] Cardiology 01/20/15 Wild Rutledge MD [email or web address] Cardiology 08/16/16 Luther Camara MD [address] [place] [address] [email or web address] Historical LMR Provider 03/04/17 Roddy Chris MD [address] [place] [address] [place] [address] Sp[facility] Carver Internal Medicine 07/21/20 Luther Camara MD [address] [place] [address] [email or web address] Insurance Assigned Provider 02/18/24 01/18/25 documented as of this encounter Additional Source Comments The information contained in this document represents components of the legal health record. It is not the complete legal health record.[facility]
--- OUTSIDE RECORDS SUMMARY | 2025-03-03 13:00 | XMS_ITS | Clinical Summary ---
Author Organization [facility] Address [address] [place] [address] Phone Care Team Providers Care Attorney Name Role Phone Luther Camara MD Primary Care Provider [phone] Marcellus Mojica MD Unavailable [phone] Wild Rutledge MD Unavailable 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 cardiac surgery Last Assessment & Plan: This patient has a history of ascending aortic aneurysm status post valve sparing root replacement and faviola-arch replacement in 2007. He is followed by the cardiac surgery service at [facility]. He recently had his two year echocardiogram and MRI with Dr. Aguero. Aortic aneurysm 01/20/2015 Overview (07/04/2018): 2019R1.3 IMO Load Encounters Date Type Department Care Team Description 01/21/2025 2:00 PM EDT Office Visit [facility] at [address] [address] Poppy Govea NP Laceration of nose, initial encounter (Primary Dx) 12/23/2024 Orders Only [facility] Internal Medicine [address] [place] [address] Provider, MD Kamila 12/02/2024 Refill [facility] Internal Medicine [address] [facility] [address] [place] [address] Luther Camara MD Medication Refill from Last [...] Tetanus Toxo id, PF, Adsorbed 12/22/2017 Tdap 01/21/2025,11/12/2013 Zoster recombinant 07/10/2018,02/19/2018 Family History Medical History [...] high school, GED, job training, learning the Hungarian language, technical skills, or developing parenting skills)? [...] Sign Reading Time Taken Comments Blood Pressure 133/76 01/21/2025 2:26 PM EDT Pulse 70 01/21/2025 2:26 PM EDT Temperature 36.6 C (97.9 F) 01/21/2025 2:26 PM EDT Respiratory Rate 17 01/21/2025 2:26 PM EDT Oxygen Saturation 97% 01/21/2025 2:26 PM EDT Inhaled Oxygen Concentration - - Weight 82.6 kg (182 lb) 10/14/2024 1:35 PM EDT Height 179.8 cm (5' 10.79 ) 10/14/2024 1:35 PM E DT Body Mass Index 25.54 10/14/2024 1:35 PM EDT Plan of Treatment Upcoming Encounters Date Type Department Care Team (Late st Contact Info) Description 10/17/2025 9:00 AM EDT Office Visit [facility] Internal Medicine [address] [place] [address] Luther Camara MD [address] [place] [address] [email or web address] Health Maintenance Due Date Last Done Comments COLOGUARD 11/09/2004 FIT TEST 11/09/2004 FOBT 11/09/2004 SIGMOIDOSCOPY 11/09/2004 VIRTUAL COLONOSCOPY 11/09/2004 INFLUENZA VACCINE (#1) 2024 , 02/05/2023, 01/28/2022, Additional history exists COVID-19 VACCINE ( season) 2025 02/19/2024, 02/05/2023, 01/28/2022, Additional history exists BLOOD PRESSURE 07/21/2025 01/21/2025 CREATININE LEVEL 10/08/2025 10/08/2024, , 06/09/2022, Additional history exists DEPRESSION SCREENING 10/08/2025 10/08/2024, 01/21/20 15 LIPID PANEL 10/08/2025 10/08/2024, 05/17, 06/09/2022, Additional history exists POTASSIUM LEVEL 10/08/2025 10/08/2024, 05/17, 06/09/2022, Additional history exists SCREENING FOR DIABETES 10/09/2027 10/08/2024, 2024 COLONOSCOPY 05/26/2030 05/26/2020, 04/15, 04/30/2010 COLORECTAL CANCER SCREENING 05/26/2030 RSV VACCINE (1 - 1-dose 75+ series) 11/09/2034 Adult Td,Tdap Booster 01/21/2035 01/21/2025 , 12/22/2017, 11/12/2013, Additional history exists HEPATITIS C SCREENING Completed 06/04/2010 ZOSTER VACCINES [...] Procedure Name Priority Date/Time Associated Diagnosis Comments LACERATION REPAIR Routine 01/21/2025 3:33 PM EDT Laceration of nose, initial encounter DERMATOPATHOLOGY Routine 12/06/2024 4:14 PM EDT LIPID PANEL Routine 10/08/2024 8:47 AM EDT Essential hypertension Pure hypercholesterolemia COMPREHENSIVE METABOLIC PANEL Routine 10/08/2024 8:47 AM EDT Essential hypertension Pure hypercholesterolemia COLONOSCOPY FOR RESULT ENTRY ONLY Routine 05/26/2020 OUTSIDE HEPATITIS C VIRUS SCREENING Routine 06/04/2010 from Last 3 Months or Most Recently Relevant to Health Maintenance Results * LACERATION REPAIR (01/21/2025 3:33 PM EDT) Other Narrative Poppy Govea NP - 01/21/2025 3:33 PM EDT Poppy Govea NP 01/21/2025 3:36 PM Laceration/Wound Repair Date/Time: 01/21/2025 3:33 PM Performed by: Poppy Govea NP Authorized by: Poppy Govea NP Injury: Body area: Head/neck Location details: Nose Laceration length (cm): 0.5 Foreign bodies: No foreign bodies Tendon involvement: None Nerve involvement: None Vascular damage?: No Patient sedated?: No Anesthesia: No Procedure Details: Preparation: Patient was prepped and draped in usual sterile fashion Irrigation solution: Saline Amount of cleaning: Extensive Debridement: None Undermining: None Skin closure: Ethilon Number of sutures: 1 Suture technique: Simple Approximation: Close Patient tolerance: Patient tolerated the procedure well with no immediate complications Steri-Strips and Band-Aid applied Poppy Govea NP PROCEDURE/MINOR SURGICAL O RDERABLES Final Result * Dermatopathology (12/06/2024 4:14 PM EDT) Historical Provider PATHOLOGY ORDERABLES Denise mena Result * (ABNORMAL) Comprehensive metabolic panel (10/08/2024 8:47 AM EDT) SODIUM 138 133 - 146 mmol/L [facility] POTASSIUM 4.1 3.3 - 5.1 mmol/L [facility] CHLORIDE 101 96 - 108 mmol/L [facility] CO2 25 21 - 35 mmol/L [facility] BUN 18 6 - 19 mg/dL [facility] CREATININE 1.00 0.5 - 1.5 mg/dL [facility] GLUCOSE 101(H) 70 - 99 mg/dL [facility] ALBUMIN 4.5 3.9 - 4.8 g/dL [facility] TOTAL PROTEIN 7.4 6.5 - 8.0 g/dL [facility] CALCIUM 9.7 8.4 - 10.3 mg/dL [facility] ALKALINE PHOSPHATASE 46 39 - 117 U/L [facility] TOTAL BILIRUBIN 0.9 0.0 - 1.2 mg/dL [facility] AST 23 0 - 37 U/L [facility] ALT 15 0 - 40 U/L [facility] GLOBULIN 2.9 1 - 4.8 g/dL [facility] EGFR 84 >59 mL/min/1.7 3m2 [facility] Comment:Estimated glomerular filtration rate calculated using the CKD-EPI refit equation. ANION GAP 16 10 - 20 mmol/L [facility] Blood 10/08/2024 8:47 AM EDT 10/08/2024 8:50 AM EDT us Luther Camara MD LAB BLOOD ORDERABLES Final Re sult Performing Organization Address City/[facility]/ZIP Co de Phone Number [address] [address] * Lipid panel (10/08/2024 8:47 AM EDT) HDL 47 mg/dL [facility] Comment: Interpretation <40 mg/dL: Low HDL cholesterol (major risk factor for CHD) Greater than or equal to 60 mg/dL: High HDL cholesterol ( negative risk factor for CHD) HDL - cholesterol is affected by a number of factors, e.g. smoking, excerise, hormones, sex and age. CHOLESTEROL 194 0 - 240 mg/dL [facility] TRIGLYCERIDES 95 30 - 160 mg/dL [facility] LDL 128 50 - 129 mg/dL [facility] Comment: LDL levels in terms of risk for coronary heart disease: <100 mg/dL: Optimal 100-129 mg/dL: Near or above optimal 130-159 mg/dL: Borderline high 160-189 mg/dL: High >190 mg/dL: Very High CARDIAC RISK RATIO 4.1 3.4 - 5.0 C [facility] Blood 10/08/2024 8:47 AM EDT 10/08/2024 8:50 AM EDT us Luther Camara MD LAB BLOOD ORDERABLES Final Re sult Performing Organization Address City/[facility]/ZIP Co de Phone Number [address] [address] * HM COLONOSCOPY FOR RESULT ENTRY ONLY (05/26/2020) us Historical Provider HEALTH MAINTENANCE Final Result * Outside Hepatitis C Virus Screening (06/04/2010) Hepatitis C Screening - External Neg Historical Provider LAB BLOOD ORDERABLES Denise l Result from Last 3 Months or Most Recently Relevant to Health Maintenance Insurance [employer] SUPPLEMENT MEDICARE PART A & B [employer] SUPPLEMENT MEDICARE PART A & B [employer] SUPPLEMENT MEDICARE PART A & B [employer] MEDEX SUPPLEMENT MEDICARE PART A & B [facility] MEDEX SUPPLEMENT MEDICARE PART A & B ERIE CROSS MEDEX SUPPLEMENT MEDICARE PART A & B Care Teams Attorney Relationship Specialty Start Date End Date Luther Camara MD [address] [place] [address] PCP - General 09/18/14 Marcellus Mojica MD [address] [place] [address] Cardiology 01/20/15 Wild Rutledge MD [email or web address] Cardiology 08/16/16 Luther Camara MD [address] [place] [address] [email or web address] Historical LMR Provider 03/04/17 Roddy Chris MD [address] [place] [address] [place] [address] Litigation Secretary Internal Medicine 07/21/20 Additional Source Comments The information contained in this document represents components of the legal health record. It is not the complete legal health record.[facility]
--- OUTSIDE RECORDS SUMMARY | 2025-03-03 13:01 | XMS_ITS | Encounter Summary ---
Author Organization [facility] Address [address] [employer] [facility] [address] [place] [address] Phone Care Team Providers Care Animal Cop Name Role Phone Luther Camara MD Primary Care Provider [phone] Marcellus Mojica MD Unavailable [phone] Wild Rutledge MD Unavailable [email or web address] Luther Camara MD Unavailable [phone] Roddy Chris MD Unavailable [phone] Luther Camara MD Unavailable [phone] Encounter Details Date Type Department Care Team (Late st Contact Info) Description 07/22/2024 Procedure Pass [facility] Radiology [address] [place] [address] Social History Tobacco Use Types Packs/Day Years [...] high school, GED, job training, learning the Turkmen language, technical skills, or developing parenting skills)? [...] Description 10/17/2025 9:00 AM EDT Office Visit [facility] Internal Medicine [address] [place], [place] [phone] Luther Camara MD [address] [place] [address] documented as of this encounter Visit Diagnoses Not on filedocumented in this encounter Additional Health Concerns Assessment Noted Time PHQ-9 Depression Total Score: 0 01/21/20 15 10:54 AM EDT PHQ-2 Depression Total Score: 0 06/15/19 24 4:11 PM EST documented as of this encounter Care Teams Animal Cop Relationship Specialty Start Date End Date Luther Camara MD [address] [place] [address] PCP - General 09/18/14 Marcellus Mojica MD [address] [place] [address] Cardiology 01/20/15 Wild Rutledge MD [email or web address] Cardiology 08/16/16 Luther Camara MD [address] [place] [address] Historical LMR Provider 03/04/17 Roddy Chris MD [address] [place] [address] [place] [address] Personal Financial Advisor Internal Medicine 07/21/20 Luther Camara MD [address] [place] [address] [email or web address] Insurance Assigned Provider 02/18/24 01/18/25 documented as of this encounter Additional Source Comments The information contained in this document represents components of the legal health record. It is not the complete legal health record.[facility]
--- OUTSIDE RECORDS SUMMARY | 2025-03-03 13:01 | XMS_ITS | Encounter Summary ---
Author Organization [facility] Address [address] [place] [address] Phone Care Team Providers Care Processing Supervisor Name Role Phone Luther Camara MD Primary Care Provider Marcellus Mojica MD Unavailable [phone] Wild Rutledge MD Unavailable [email or web address] Luther Camara MD Unavailable [phone] PeriRoddy Ramos MD Unavailable [phone] Luther Camara MD Unavailable [phone] Reason for Referral * MRI/CAT Scan - Closed Specialty Diagnoses / Procedures Referred By Paul torres Referred To Contact Radiology Diagnoses Status post ascending aortic aneurysm repair Procedures CT Angio 3D Reconstruction Chest/Abdomen/Pelvis Josh Rg PA-C Phone: tel: fax: [email or web address]:[email or web address] Referral ID Status Reason Start Date Expiration Date Visits Re quested Visits Authorized [id number] Closed 07/22/2024 08/12/2024 1 1 Encounter Details Date Type Department Care Team (Late st Contact Info) Description 07/22/2024 Ancillary Orders [facility] Cardiac Surgery [address] [place] [address] Josh Rg PA-C [address] [place] [address] [email or web address] Status post ascending aortic aneurysm repair (Primary [...] high school, GED, job training, learning the Chinese language, technical skills, or developing parenting skills)? [...] have reliable internet access at home? Ye vidal 06/15/2023 Do you have a device (e.g., [...] Description 10/17/2025 9:00 AM EDT Office Visit [facility] Internal Medicine [address] [place] [address] Luther Camara MD [address] [place] [address] [email or web address] documented as of this encounter Results * [...] suspicious lytic or blastic lesions. Procedure Note Pecry Aldana MD - 07/23/2024 CT ANGIO CHEST [...] created by Marisa Deshpande. Josh Rg PA-C IMG CT Final Result documented in this encounter Visit Diagnoses Diagnosis Status post ascending aortic aneurysm repair Status post ascending aortic aneurysm repair- Primary documented in this encounter Additional Health Concerns Assessment Noted Time PHQ-9 Depression Total Score: 0 01/21/20 15 10:54 AM EDT PHQ-2 Depression Total Score: 0 06/15/19 24 4:11 PM EST documented as of this encounter Care Teams Processing Supervisor Relationship Specialty Start Date End Date Luther Camara MD [address] [place] [address] PCP - General 09/18/14 Marcellus Mojica MD [address] [place] [address] Cardiology 01/20/15 Wild Rutledge MD [email or web address] Cardiology 08/16/16 Luther Camara MD [address] [place] [address] [email or web address] Historical LMR Provider 03/04/17 Roddy Chris MD [address] [place] [address] [place] [address] Tong Setter Internal Medicine 07/21/20 Luther Camara MD [address] [place] [address] [email or web address] Insurance Assigned Provider 02/18/24 01/18/25 documented as of this encounter Additional Source Comments The information contained in this document represents components of the legal health record. It is not the complete legal health record.[facility]
== END 2025-03-03 10:46 | disposition home or self-care (01) ==
LOC: HO.HMGAL 10:46
PROVIDERS: PCP Internal Medicine; Visit Provider Registered Nurse Emergency
DX: J30.89 Other allergic rhinitis (principal)
CPT/HCPCS: 95117; 95165

== ENCOUNTER 2025-04-02 12:34 | Outpatient (AMB) | payer MEDICARE, SELFPAY ==
--- OUTSIDE RECORDS SUMMARY | 2025-04-02 23:49 | XMS_ITS | Patient Health Record ---
Author Organization [facility] Address [address] [place] [address] Care Team Providers Care Airplane Gas Tank Liner Assembler Name Role Phone Luther Camara MD Primary Care Provider Memo Baer Jr Unavailable [phone] Reason For Referral No Information Medications Medication SIG (Take, Route, Frequency, Duration) Notes Start Date End Date Status MiraLax (colon prep) 8.3 ounce ((238) grams mixed with Gatorade or Crystal Light orally begin at 5:00 p.m. the day before the procedure; Duration: 1 day 03/25/2020 Active Metoprolol Succinate 50 MG Capsule ER 24 Hour Sprinkle 1 capsule Orally Once a day; Duration: 30 day(s) Active Aspirin 81 81 MG Tablet Delayed Release 1 tablet Orally Once a day; Duration: 30 day(s) Active Lisinopril 20 MG Tablet 1 tablet Orally Once a day; Duration: 30 day(s) Active Ibuprofen PRN Active Multivitamin Adults - Tablet as directed Orally Active Immunizations Vaccine Route Administration Date Status Comme nts Influenza Unknown 01/22/2020 Administered Social History Tobacco Use: Social History Observation Description Date Details (start date - stop date) Never Smoker NA - NA Social History Drugs/Alcohol: Social Info Question Answer Notes Alcohol Screen Did you have a drink containing alcohol in the past year? Yes How often did you have a drink containing alcohol in the past year? 2 to 3 times a week (3 points) How many drinks did you have on a typical day when you were drinking in the past year? 1 or 2 drinks (0 point) How often did you have 6 or more drinks on one occasion in the past year? Never (0 point) Points 3 Interpretation Negative Tobacco Use: Social Info Question Answer Notes Tobacco Use/Smoking Patient is a nonsmoker Additional Details Category Social Info Options Details Miscellaneous: Marital status: Occupation: dispatch supervi sor Problems Problem Type SNOMED Code ICD Code Onset Dates Problem Status W/U Status Risk Notes Problem Colon cancer screening (073627182) Colon cancer screening (Z12.11) Active confirmed Problem Pre-procedure evaluation check (914356934) Encounter for other preprocedural examination (Z01.818) Active confirmed Problem Long-term current use of antiplatelet drug (761446677024746 ) watermelon harvesting supervisor (current) use of aspirin (Z79.82) Active confirmed Plan Of Treatment Future Test Test Name Order Date COLONOSCOPY 03/25/2020 Insurance Providers Payer Name Payer Address Payer Phone Subscriber Number Group Number Insured Name Patient Relationship to Insured Coverage Start Date Coverage End Date [facility] [address] [facility] [place]ARI ARAUJO [phone] [id number] DOR[employer] WEBSTER Self - patient is the insured Medical (General) History Medical History History ICD Code hypertension Aortic aneurysm CVA/PFO Surgical History Surgery Date(Month/Year) Aortic aneurysm repair hernia repair x2 PFO repair at time of aneurysm repair
== END 2025-04-02 12:35 | disposition home or self-care (01) ==
LOC: HO.HMGAL 12:34
PROVIDERS: PCP Internal Medicine; Visit Provider Registered Nurse Emergency
DX: J30.89 Other allergic rhinitis (principal)
CPT/HCPCS: 95117; 95165

== ENCOUNTER 2025-05-14 12:10 | Outpatient (AMB) | payer MEDICARE, SELFPAY ==
--- OUTSIDE RECORDS SUMMARY | 2025-05-14 13:53 | XMS_ITS | Encounter Summary ---
Author Organization [facility] Address [address] [place] [address] Phone Care Team Providers Care Layout Technician Name Role Phone Luther Camara MD Primary Care Provider Marcellus Mojica MD Unavailable [phone] Wild Rutledge MD Unavailable [email or web address] Luther Camara MD Unavailable [phone] PeriRoddy Ramos MD Unavailable [phone] Luther Camara MD Unavailable [phone] Encounter Details Date Type Department Care Team (Late st Contact Info) Description 01/13/2020 Transcribe Orders [address] [id number] Luther Camara MD [address] [place] [address] [email or web address] Social History Tobacco Use Types Packs/Day Years [...] Description 10/17/2025 9:00 AM EDT Office Visit [facility] [address] [place] [address] Luther Camara MD [address] [place] [address] documented as of this encounter Visit Diagnoses Not on filedocumented in this encounter Additional Health Concerns Assessment Noted Time PHQ-9 Depression Total Score: 0 01/21/20 10:54 AM EDT PHQ-2 Depression Total Score: 0 12/31/19 2:53 PM EDT documented as of this encounter Care Teams Layout Technician Relationship Specialty Start Date End Date Luther Camara MD [address] [place] [address] PCP - General 09/18/14 Marcellus Mojica MD [address] [place] [address] Cardiology 01/20/15 Wild Rutledge MD [email or web address] Cardiology 08/16/16 Luther Camara MD [address] [place] [address] Historical LMR Provider 03/04/17 Roddy Chris MD [address] [place] [address] [place] [address] Medical Safety Director Internal Medicine 07/21/20 Luther Camara MD [address] [place] [address] [email or web address] Insurance Assigned Provider 02/18/24 01/18/25 documented as of this encounter Additional Source Comments The information contained in this document represents components of the legal health record. It is not the complete legal health record.[facility]
--- OUTSIDE RECORDS SUMMARY | 2025-05-14 13:53 | XMS_ITS | Encounter Summary ---
Author Organization [facility] Address [address] [facility] [address] [place] [address] Phone Care Team Providers Care Supervisor Twisting Department Name Role Phone Luther Camara MD Primary Care Provider [phone] Marcellus Mojica MD Unavailable [phone] Wild Rutledge MD Unavailable [email or web address] Luther Camara MD Unavailable [phone] Roddy Chris MD Unavailable [phone] Luther Camara MD Unavailable [phone] Encounter Details Date Type Department Care Team (Late st Contact Info) Description 05/21/2024 Procedure Pass [facility] [address] [place] [address] Social History Tobacco Use Types Packs/Day Years [...] high school, GED, job training, learning the Panamanian language, technical skills, or developing parenting skills)? [...] Description 10/17/2025 9:00 AM EDT Office Visit [facility] 40 [place], [place] [phone] Luther Camara MD 40 [place] [address] documented as of this encounter Visit Diagnoses Not on filedocumented in this encounter Additional Health Concerns Assessment Noted Time PHQ-9 Depression Total Score: 0 01/21/20 15 10:54 AM EDT PHQ-2 Depression Total Score: 0 06/15/19 24 4:11 PM EST documented as of this encounter Care Teams Supervisor Twisting Department Relationship Specialty Start Date End Date Luther Camara MD [address] [place] [address] PCP - General 09/18/14 Marcellus Mojica MD [address] [place] [address] Cardiology 01/20/15 Wild Rutledge MD [email or web address] Cardiology 08/16/16 Luther Camara MD [address] [place] [address] Historical LMR Provider 03/04/17 Roddy Chris MD [address] [place] [address] [place] [address] Activities Therapist Internal Medicine 07/21/20 Luther Camara MD [address] [place] [address] (work) [email or web address] Insurance Assigned Provider 02/18/24 01/18/25 documented as of this encounter Additional Source Comments The information contained in this document represents components of the legal health record. It is not the complete legal health record.[facility]
--- OUTSIDE RECORDS SUMMARY | 2025-05-14 13:53 | XMS_ITS | Encounter Summary ---
Author Organization [facility] Address [address] [facility] [address] [place] [address] Phone Care Team Providers Care Dust Collector Name Role Phone Luther Camara MD Primary Care Provider [phone] Marcellus Mojica MD Unavailable [phone] Wild Rutledge MD Unavailable [email or web address] Luther Camara MD Unavailable [phone] Roddy Chris MD Unavailable [phone] Luther Camara MD Unavailable [phone] Encounter Details Date Type Department Care Team (Late st Contact Info) Description 12/27/2023 Procedure Pass [facility] 70 [place] [address] Social History Tobacco Use Types Packs/Day Years [...] Description 10/17/2025 9:00 AM EDT Office Visit [facility] 40 [place], [place] [phone] Luther Camara MD 40 [place] [address] documented as of this encounter Visit Diagnoses Not on filedocumented in this encounter Additional Health Concerns Assessment Noted Time PHQ-9 Depression Total Score: 0 01/21/20 15 10:54 AM EDT PHQ-2 Depression Total Score: 0 06/15/19 24 4:11 PM EST documented as of this encounter Care Teams Dust Collector Relationship Specialty Start Date End Date Luther Camara MD 40 [place] [address] PCP - General 09/18/14 Marcellus Mojica MD [address] [place] [address] Cardiology 01/20/15 Wild Rutledge MD [email or web address] Cardiology 08/16/16 Luther Camara MD [address] [place] [address] Historical LMR Provider 03/04/17 Roddy Chris MD [address] [place] [address] [place] [address] Business Banking Relationship Manager Internal Medicine 07/21/20 Luther Camara MD [address] [place] [address] [email or web address] Insurance Assigned Provider 02/18/24 01/18/25 documented as of this encounter Additional Source Comments The information contained in this document represents components of the legal health record. It is not the complete legal health record.[facility]
--- OUTSIDE RECORDS SUMMARY | 2025-05-14 13:53 | XMS_ITS | Encounter Summary ---
Author Organization [facility] Address [address] [place] [address] Phone Care Team Providers Care Dye Worker Name Role Phone Luther Camara MD Primary Care Provider [phone] Marcellus Mojica MD Unavailable [phone] Wild Rutledge MD Unavailable [email or web address] Luther Camara MD Unavailable [phone] ePriRoddy Ramos MD Unavailable [phone] Luther Camara MD Unavailable [phone] Encounter Details Date Type Department Care Team (Late st Contact Info) Description 05/13/2020 Procedure Pass [facility] 70 [place] [address] Social History Tobacco Use Types Packs/Day Years [...] Description 10/17/2025 9:00 AM EDT Office Visit [facility] 40 [place] [address] Luther Camara MD [address] [place] [address] documented as of this encounter Visit Diagnoses Not on filedocumented in this encounter Additional Health Concerns Assessment Noted Time PHQ-9 Depression Total Score: 0 01/21/20 15 10:54 AM EDT PHQ-2 Depression Total Score: 0 07/22/19 21 10:14 AM EST documented as of this encounter Care Teams Dye Worker Relationship Specialty Start Date End Date Luther Camara MD [address] [place] [address] PCP - General 09/18/14 Marcellus Mojica MD [address] [place] [address] Cardiology 01/20/15 Wild Rutledge MD [email or web address] Cardiology 08/16/16 Luther Camara MD [address] [place] [address] [email or web address] Historical LMR Provider 03/04/17 Roddy Chris MD [address] [place] [address] [place] [address] Mill Laborer Internal Medicine 07/21/20 Luther Camara MD [address] [place] [address] [email or web address] Insurance Assigned Provider 02/18/24 01/18/25 documented as of this encounter Additional Source Comments The information contained in this document represents components of the legal health record. It is not the complete legal health record.[facility]
--- OUTSIDE RECORDS SUMMARY | 2025-05-14 13:53 | XMS_ITS | Encounter Summary ---
Author Organization [facility] Address [address] [address] Phone Care Team Providers Care Author Agent Name Role Phone Luther Camara MD Primary Care Provider [phone] Marcellus Mojica MD Unavailable [phone] Wild Rutledge MD Unavailable [email or web address] Luther Camara MD Unavailable [phone] PeriRoddy Ramos MD Unavailable [phone] Luther Camara MD Unavailable [phone] Encounter Details Date Type Department Care Team (Late st Contact Info) Description 06/01/2018 Procedure Pass [facility] 70 [place] [address] Social History Tobacco Use Types Packs/Day Years [...] Description 10/17/2025 9:00 AM EDT Office Visit [facility] 40 [place] [address] Luther Camara MD [address] [place] [address] [phone] documented as of this encounter Visit Diagnoses Not on filedocumented in this encounter Additional Health Concerns Assessment Noted Time PHQ-9 Depression Total Score: 0 01/21/20 15 10:54 AM EDT PHQ-2 Depression Total Score: 0 07/25/19 19 2:31 PM EDT documented as of this encounter Care Teams Author Agent Relationship Specialty Start Date End Date Luther Camara MD [address] [place] [address] PCP - General 09/18/14 Marcellus Mojica MD [address] [place] [address] Cardiology 01/20/15 Wild Rutledge MD [email or web address] Cardiology 08/16/16 Luther Camara MD [address] [place] [address] [email or web address] Historical LMR Provider 03/04/17 Roddy Chris MD [address] [place] [address] [place] [address] Termination Clerk Internal Medicine 07/21/20 Luther Camara MD [address] [place] [address] [phone] [email or web address] Insurance Assigned Provider 02/18/24 01/18/25 documented as of this encounter Additional Source Comments The information contained in this document represents components of the legal health record. It is not the complete legal health record.[facility]
--- OUTSIDE RECORDS SUMMARY | 2025-05-14 13:53 | XMS_ITS | Encounter Summary ---
Author Organization [facility] Address [address] [address] Phone Care Team Providers Care Dance Hall Host/Hostess Name Role Phone Luther Camara MD Primary Care Provider [phone] Marcellus Mojica MD Unavailable [phone] Wild Rutledge MD Unavailable [email or web address] Luther Camara MD Unavailable [phone] PeriRoddy Ramos MD Unavailable [phone] Luther Camara MD Unavailable [phone] Encounter Details Date Type Department Care Team (Late st Contact Info) Description 05/13/2020 Procedure Pass [facility] 70 [place] [address] Social History Tobacco Use Types Packs/Day Years [...] Description 10/17/2025 9:00 AM EDT Office Visit [facility] 40 [place] [address] Luther Camara MD [address] [place] [address] documented as of this encounter Visit Diagnoses Not on filedocumented in this encounter Additional Health Concerns Assessment Noted Time PHQ-9 Depression Total Score: 0 01/21/20 15 10:54 AM EDT PHQ-2 Depression Total Score: 0 07/22/19 21 10:14 AM EST documented as of this encounter Care Teams Dance Hall Host/Hostess Relationship Specialty Start Date End Date Luther Camara MD [address] [place] [address] PCP - General 09/18/14 Marcellus Mojica MD [address] [place] [address] Cardiology 01/20/15 Wild Rutledge MD [email or web address] Cardiology 08/16/16 Luther Camara MD [address] [place] [address] [email or web address] Historical LMR Provider 03/04/17 Roddy Chris MD [address] [place] [address] [place] [address] Experimental Mechanic Spacecraft Internal Medicine 07/21/20 Luther Camara MD [address] [place] [address] [email or web address] Insurance Assigned Provider 02/18/24 01/18/25 documented as of this encounter Additional Source Comments The information contained in this document represents components of the legal health record. It is not the complete legal health record.[facility]
--- OUTSIDE RECORDS SUMMARY | 2025-05-14 13:53 | XMS_ITS | Encounter Summary ---
Author Organization [facility] Address [address] [facility] [address] [place] [address] Phone Care Team Providers Care Associate Professor Of Forestry Name Role Phone Luther Camara MD Primary Care Provider [phone] Marcellus Mojica MD Unavailable [phone] Wild Rutledge MD Unavailable [email or web address] Luther Camara MD Unavailable [phone] Roddy Chris MD Unavailable [phone] Luther Camara MD Unavailable [phone] Encounter Details Date Type Department Care Team (Late st Contact Info) Description 12/27/2023 Procedure Pass [facility] 70 [place] [address] Social History Tobacco Use Types Packs/Day Years [...] high school, GED, job training, learning the German language, technical skills, or developing parenting skills)? [...] [facility] 40 [place], [place] [phone] Luther Camara MD 40 [place] [address] documented as of this encounter Visit Diagnoses Not on filedocumented in this encounter Additional Health Concerns Assessment Noted Time PHQ-9 Depression Total Score: 0 01/21/20 15 10:54 AM EDT PHQ-2 Depression Total Score: 0 06/15/19 24 4:11 PM EST documented as of this encounter Care Teams Associate Professor Of Forestry Relationship Specialty Start Date End Date Luther Camara MD 40 [place] [address] PCP - General 09/18/14 Marcellus Mojica MD [address] [place] [address] Cardiology 01/20/15 Wild Rutledge MD [email or web address] Cardiology 08/16/16 Luther Camara MD [address] [place] [address] Historical LMR Provider 03/04/17 Roddy Chris MD [address] [place] [address] [place] [address] Five Piece Expansion Maker Hand Internal Medicine 07/21/20 Luther Camara MD [address] [place] [address] [email or web address] Insurance Assigned Provider 02/18/24 01/18/25 documented as of this encounter Additional Source Comments The information contained in this document represents components of the legal health record. It is not the complete legal health record.[facility]
--- OUTSIDE RECORDS SUMMARY | 2025-05-14 13:54 | XMS_ITS | Encounter Summary ---
Author Organization [facility] Address [address] [facility] [address] [place] [address] Phone Care Team Providers Care Placement Coordinator Name Role Phone Luther Camara MD Primary Care Provider [phone] Marcellus Mojica MD Unavailable [phone] Wild Rutledge MD Unavailable [email or web address] Luther Camara MD Unavailable [phone] PeriRoddy Ramos MD Unavailable [phone] Luther Camara MD Unavailable [phone] Encounter Details Date Type Department Care Team (Late st Contact Info) Description 08/08/2016 Procedure Pass [facility] [address] [place] [address] Social History Tobacco Use Types Packs/Day Years [...] Description 10/17/2025 9:00 AM EDT Office Visit [facility] 40 [place] [address] Luther Camara MD 40 [place], [place] [phone] [email or web address] documented as of this encounter Visit Diagnoses Not on filedocumented in this encounter Additional Health Concerns Assessment Noted Time PHQ-9 Depression Total Score: 0 01/21/20 10:54 AM EDT PHQ-2 Depression Total Score: 0 01/21/20 10:54 AM EDT documented as of this encounter Care Teams Placement Coordinator Relationship Specialty Start Date End Date Luther Camara MD 40 [place] [address] [email or web address] PCP - General 09/18/14 Marcellus Mojica MD [address] [place] [address] Cardiology 01/20/15 Wild Rutledge MD [email or web address] Cardiology 08/16/16 Luther Camara MD [address] [place] [address] [email or web address] Historical LMR Provider 03/04/17 Roddy Chris MD [address] [place] [address] [place] [address] Junior Php Developer Internal Medicine 07/21/20 Luther Camara MD [address] [place] [address] [email or web address] Insurance Assigned Provider 02/18/24 01/18/25 documented as of this encounter Additional Source Comments The information contained in this document represents components of the legal health record. It is not the complete legal health record.[facility]
--- OUTSIDE RECORDS SUMMARY | 2025-05-14 13:54 | XMS_ITS | Encounter Summary ---
Author Organization [facility] Address [address] [place] [address] Phone Care Team Providers Care Co Supervisor Grounds And Landscape Name Role Phone Luther Camara MD Primary Care Provider [phone] Marcellus Mojica MD Unavailable [phone] Wild Rutledge MD Unavailable [email or web address] Luther Camara MD Unavailable [phone] PeriRoddy Ramos MD Unavailable [phone] Luther Camara MD Unavailable [phone] Reason for Referral * MRI/CAT Scan - Closed Specialty Diagnoses / Procedures Referred By Paul torres Referred To Contact Radiology Diagnoses Status post ascending aortic aneurysm repair Procedures CT Angio 3D Reconstruction Chest/Abdomen/Pelvis Josh Rg PA-C Phone: tel: fax: [email or web address] Referral ID Status Reason Start Date Expiration Date Visits Re quested Visits Authorized [id number] Closed 07/22/2024 08/12/2024 1 1 Encounter Details Date Type Department Care Team (Latest Contact Info) Description 07/22/2024 Ancillary Orders [facility] [address] [address] Josh Rg PA-C 75 [place] [address] [email or web address] Status post ascending aortic aneurysm repair [...] high school, GED, job training, learning the Iranian language, technical skills, or developing parenting skills)? [...] 10/17/2025 9:00 AM EDT Office Visit [facility] 40 [place] [address] Luther Camara MD 40 [place] [address] [email or web address] documented as of this encounter Results [...] documented as of this encounter Care Teams Co Supervisor Grounds And Landscape Relationship Specialty Start Date End Date Luther Camara MD 40 [place] [address] PCP - General 09/18/14 Marcellus Mojica MD [address] [place] [address] Cardiology 01/20/15 Wild Rutledge MD [email or web address] Cardiology 08/16/16 Luther Camara MD 40 [place] [address] Historical LMR Provider 03/04/17 Roddy Chris MD [address] [place] [address] [place] [address] Organic Preparation Technician Internal Medicine 07/21/20 Luther Camara MD [address] [place] [address] [email or web address] Insurance Assigned Provider 02/18/24 01/18/25 documented as of this encounter Additional Source Comments The information contained in this document represents components of the legal health record. It is not the complete legal health record.[facility]
--- OUTSIDE RECORDS SUMMARY | 2025-05-14 13:54 | XMS_ITS | Clinical Summary ---
Author Organization 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 He is followed by the cardiac surgery service at [facility]. He recently had his two year echocardiogram and MRI with Dr. Aguero. Aortic aneurysm 01/20/2015 Overview (07/04/2018): 2019R1.3 IMO Load Immunizations Immunization Administration Dates Next Due COVID-19 [...] high school, GED, job training, learning the Sammarinese language, technical skills, or developing parenting skills)? [...] Description 10/17/2025 9:00 AM EDT Office Visit [facility] [address] [place] [address] Luther Camara MD [address] [facility] [place] [address] [email or web address] Health Maintenance Due Date Last Done Comments [...] DIABETES 10/09/2027 10/08/2024, 2024 COLONOSCOPY 05/26/2030 05/26/2020, 1212/2011, 04/30/2010 COLORECTAL CANCER SCREENING 05/26/2030 RSV VACCINE [...] Procedure Name Priority Date/Time Associated Diagnosis Comments LIPID PANEL Routine 10/08/2024 8:47 AM EDT Essential hypertension Pure hypercholesterolemia COMPREHENSIVE METABOLIC PANEL (CMP) Routine 10/08/2024 8:47 AM EDT Essential hypertension Pure hypercholesterolemia HM COLONOSCOPY FOR RESULT ENTRY ONLY Routine 05/26/2020 OUTSIDE HEPATITIS C VIRUS SCREENING Routine 06/04/2010 from Last 3 Months or Most Recently Relevant to Health Maintenance Results * (ABNORMAL) Comprehensive metabolic panel (10/08/2024 8:47 AM EDT) SODIUM 138 133 - 146 mmol/L [facility] POTASSIUM 4.1 3.3 - 5.1 mmol/L [facility] CHLORIDE 101 96 - 108 mmol/L [facility] CO2 25 21 - 35 mmol/L [facility] BUN 18 6 - 19 mg/dL [facility] CREATININE 1.00 0.5 - 1.5 mg/dL [facility] GLUCOSE 101(H) 70 - 99 mg/dL [facility] ALBUMIN 4.5 3.9 - 4.8 g/dL [facility] TOTAL PROTEIN 7.4 6.5 - 8.0 g/dL [facility] CALCIUM 9.7 8.4 - 10.3 mg/dL [facility] ALKALINE PHOSPHATASE 46 39 - 117 U/L [facility] TOTAL BILIRUBIN 0.9 0.0 - 1.2 mg/dL [facility] AST 23 0 - 37 U/L [facility] ALT 15 0 - 40 U/L [facility] GLOBULIN 2.9 1 - 4.8 g/dL [facility] EGFR 84 >59 mL/min/1.7 3m2 [facility] Comment:Estimated glomerular filtration rate calculated using the CKD-EPI refit equation. ANION GAP 16 10 - 20 mmol/L [facility] Blood 10/08/2024 8:47 AM EDT 10/08/2024 8:50 AM EDT us Luther Camara MD LAB BLOOD BKR ORDERABLES Denise l Result Performing Organization Address City/[facility] Co de Phone Number [address] [address] * Lipid panel (10/08/2024 8:47 AM EDT) HDL 47 mg/dL [facility] Comment: Interpretation <40 mg/dL: Low HDL cholesterol (major risk factor for CHD) Greater than or equal to 60 mg/dL: High HDL cholesterol ( negative risk factor for CHD) HDL - cholesterol is affected by a number of factors, e.g. smoking, excerise, hormones, sex and age. CHOLESTEROL 194 0 - 240 mg/dL [facility] TRIGLYCERIDES 95 30 - 160 mg/dL [facility] LDL 128 50 - 129 mg/dL [facility] Comment: LDL levels in terms of risk for coronary heart disease: <100 mg/dL: Optimal 100-129 mg/dL: Near or above optimal 130-159 mg/dL: Borderline high 160-189 mg/dL: High >190 mg/dL: Very High CARDIAC RISK RATIO 4.1 3.4 - 5.0 [facility] Blood 10/08/2024 8:47 AM EDT 10/08/2024 8:50 AM EDT us Luther Camara MD LAB BLOOD BKR ORDERABLES Denise l Result Performing Organization Address City/[facility]/ZIP Co de Phone Number [address] [address] * COLONOSCOPY FOR RESULT ENTRY ONLY (05/26/2020) us Historical Provider HEALTH MAINTENANCE Final Result * Outside Hepatitis C Virus Screening (06/04/2010) Hepatitis C Screening - External Neg Historical Provider LAB BLOOD ORDERABLES Denise l Result from Last 3 Months or Most Recently Relevant to Health Maintenance Insurance [employer] SU[employer]MENT MEDICARE PART A & B [employer] SUPPLEMENT MEDICARE PART A & B [employer] SUPPLEMENT MEDICARE PART A & B [employer] SUPPLEMENT MEDICARE PART A & B [facility] MEDEX SUPPLEMENT MEDICARE PART A & B [employer] SUPPLEMENT MEDICARE PART A & B Care Teams Mva Reactor Operator Relationship Specialty Start Date End Date Luther Camara MD [address] [place] [address] [email or web address] PCP - General 09/18/14 Marcellus Mojica MD [address] [place] [address] Cardiology 01/20/15 Wild Rutledge MD [email or web address] Cardiology 08/16/16 Luther Camara MD [address] [place] [address] [email or web address] Historical LMR Provider 03/04/17 Roddy Chris MD [address] [place] [address] [place] [address] Clam Picker Internal Medicine 07/21/20 Additional Source Comments The information contained in this document represents components of the legal health record. It is not the complete legal health record.[facility]
--- OUTSIDE RECORDS SUMMARY | 2025-05-14 13:54 | XMS_ITS | Encounter Summary ---
Author Organization [facility] Address [address] [facility] [address] [place] [address] Phone Care Team Providers Care Clinician Oncology Name Role Phone Luther Camara MD Primary Care Provider [phone] Marcellus Mojica MD Unavailable [phone] Wild Rutledge MD Unavailable [email or web address] Luther Camara MD Unavailable [phone] Roddy Chris MD Unavailable [phone] Luther Camara MD Unavailable [phone] Encounter Details Date Type Department Care Team (Late st Contact Info) Description 02/03/2022 Procedure Pass [facility] [address] [place] [address] Social History Tobacco Use Types Packs/Day Years [...] high school, GED, job training, learning the Estonian language, technical skills, or developing parenting skills)? [...] 10/17/2025 9:00 AM EDT Office Visit [facility] [address] [place] [address] Luther Camara MD [address] [place] [address] [email or web address] documented as of this encounter Visit Diagnoses Not on filedocumented in this encounter Additional Health Concerns Assessment Noted Time PHQ-9 Depression Total Score: 0 01/21/20 15 10:54 AM EDT PHQ-2 Depression Total Score: 0 06/14/19 23 3:38 PM EST documented as of this encounter Care Teams Clinician Oncology Relationship Specialty Start Date End Date Luther Camara MD [address] [place] [address] PCP - General 09/18/14 Marcellus Mojica MD [address] [place] [address] Cardiology 01/20/15 Wild Rutledge MD [email or web address] Cardiology 08/16/16 Luther Camara MD [address] [place] [address] [email or web address] Historical LMR Provider 03/04/17 Roddy Chris MD [address] [place] [address] [place] [address] Geology Teacher Internal Medicine 07/21/20 Luther Camara MD [address] [place] [address] [email or web address] Insurance Assigned Provider 02/18/24 01/18/25 documented as of this encounter Additional Source Comments The information contained in this document represents components of the legal health record. It is not the complete legal health record.[facility]
--- OUTSIDE RECORDS SUMMARY | 2025-05-14 13:54 | XMS_ITS | Encounter Summary ---
Author Organization [facility] Address [address] [facility] [address] [place] [address] Phone Care Team Providers Care Floor Steward/Stewardess Name Role Phone Luther Camara MD Primary Care Provider [phone] Marcellus Mojica MD Unavailable [phone] Wild Rutledge MD Unavailable [email or web address] Luther Camara MD Unavailable [phone] Roddy Chris MD Unavailable [phone] Luther Camara MD Unavailable [phone] Encounter Details Date Type Department Care Team (Late st Contact Info) Description 02/03/2022 Procedure Pass [facility] [address] [place] [address] Social History Tobacco Use Types Packs/Day Years [...] high school, GED, job training, learning the [place] language, technical skills, or developing parenting skills)? [...] Description 10/17/2025 9:00 AM EDT Office Visit [facility] [address] [place] [address] Luther Camara MD [address] [place] [address] [email or web address] documented as of this encounter Visit Diagnoses Not on filedocumented in this encounter Additional Health Concerns Assessment Noted Time PHQ-9 Depression Total Score: 0 01/21/20 15 10:54 AM EDT PHQ-2 Depression Total Score: 0 06/14/19 23 3:38 PM EST documented as of this encounter Care Teams Floor Steward/Stewardess Relationship Specialty Start Date End Date Luther Camara MD [address] [place] [address] PCP - General 09/18/14 Marcellus Mojica MD [address] [place] [address] Cardiology 01/20/15 Wild Rutledge MD [email or web address] Cardiology 08/16/16 Luther Camara MD [address] [place] [address] [email or web address] Historical LMR Provider 03/04/17 Roddy Chris MD [address] [place] [address] [place] [address] Termite Treater Internal Medicine 07/21/20 Luther Camara MD [address] [place] [address] [email or web address] Insurance Assigned Provider 02/18/24 01/18/25 documented as of this encounter Additional Source Comments The information contained in this document represents components of the legal health record. It is not the complete legal health record.[facility]
--- OUTSIDE RECORDS SUMMARY | 2025-05-14 13:54 | XMS_ITS | Encounter Summary ---
Author Organization [facility] Address [address] [facility] [address] [place] [address] Phone Care Team Providers Care Speech And Language Tutor Name Role Phone Luther Camara MD Primary Care Provider [phone] Marcellus Mojica MD Unavailable [phone] Wild Rutledge MD Unavailable [email or web address] Luther Camara MD Unavailable [phone] Roddy Chris MD Unavailable [phone] Luther Camara MD Unavailable [phone] Encounter Details Date Type Department Care Team (Late st Contact Info) Description 07/22/2024 Procedure Pass [facility] [address] [place] [address] Social History Tobacco Use Types Packs/Day Years [...] high school, GED, job training, learning the Dominican language, technical skills, or developing parenting skills)? [...] Office Visit [facility] [address] [place], [place] [phone] Luther Camara MD [address] [place] [address] documented as of this encounter Visit Diagnoses Not on filedocumented in this encounter Additional Health Concerns Assessment Noted Time PHQ-9 Depression Total Score: 0 01/21/20 15 10:54 AM EDT PHQ-2 Depression Total Score: 0 06/15/19 24 4:11 PM EST documented as of this encounter Care Teams Speech And Language Tutor Relationship Specialty Start Date End Date Luther Camara MD [address] [place] [address] PCP - General 09/18/14 Marcellus Mojica MD [address] [place] [address] Cardiology 01/20/15 Wild Rutledge MD [email or web address] Cardiology 08/16/16 Luther Camara MD [address] [place] [address] Historical LMR Provider 03/04/17 Roddy Chris MD [address] [place] [address] [place] [address] Stone Circular Sawyer Internal Medicine 07/21/20 Luther Camara MD [address] [place] [address] [email or web address] Insurance Assigned Provider 02/18/24 01/18/25 documented as of this encounter Additional Source Comments The information contained in this document represents components of the legal health record. It is not the complete legal health record.[facility]
--- OUTSIDE RECORDS SUMMARY | 2025-05-14 13:54 | XMS_ITS | Patient Health Record ---
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 Phone Luther Camara MD [...] Status Risk Notes Problem Colon cancer screening (512919147) Colon cancer screening (Z12.11) Active confirmed Problem Pre-procedure evaluation check (730713372) Encounter for other preprocedural examination (Z01.818) Active confirmed Problem Long-term current use of antiplatelet drug ([id number] ) [facility] (current) use of aspirin (Z79.82) Active confirmed Plan Of Treatment Future Test Test Name Order Date COLONOSCOPY 03/25/2020 Insurance Providers Payer Name Payer Address Payer Phone Subscriber Number Group Number Insured Name Patient Relationship to Insured Coverage Start Date Coverage End Date [facility] [address] [facility] SHARI ARAUJO [phone] [id number] DORCAS WEBSTER Self - patient is the insured Medical (General) History Medical History History ICD Code hypertension Aortic aneurysm CVA/PFO Surgical History Surgery Date(Month/Year) Aortic aneurysm repair hernia repair x2 PFO repair at time of aneurysm repair
== END 2025-05-14 12:14 | disposition home or self-care (01) ==
LOC: HO.HMGAL 12:10
PROVIDERS: PCP Internal Medicine; Visit Provider Registered Nurse Emergency
DX: J30.89 Other allergic rhinitis (principal)
CPT/HCPCS: 95117; 95165